=== PATIENT | male | born 1945 | race Caucasian/White ===

== ENCOUNTER 2016-08-02 15:45 | Inpatient (IN) | payer OTHER, MEDICARE ==
[~2016-08-02] VITALS: Ht 172.7 cm; Wt 88.7 kg
[~2016-08-02 15:45] MED LIST: CEPH-460 PO; LIDO5DIS35 TOPICAL; MOBI15TA PO; PERC5TAB12 PO
[2016-08-02 15:47] VITALS: BP 133/75; PULSE 82; RESP 20; TEMP 97.7; O2SAT 100
--- NOTE | 2016-08-02 16:16 | PD ---
Physical Exam Date Seen by Provider: Aug 02, 2016 Time Seen by Provider: 16:14 Narrative 71 year old male presents to the emergency department for evaluation of abnormal lab result. He states he had blood taken from the [facility] and was told he had low platelets of 17. He states he has spontaneous ecchymosis. His primary care physician, Dr. Pope, at the [facility] sent him here. Vital signs reviewed. Patient awaiting bed placement. Data Data Last Documented VS Vital Signs Date Time Temp Pulse Resp B/P Pulse Ox O2 Delivery O2 Flow Rate FiO2 08/02/16 15:47 97.7 82 20 133/75 100 Room Air MDM Supervised Visit with KAYCE: Shara Kennedy Aug 02, 2016 16:16
[2016-08-02 17:23] VITALS: BP 137/74; PULSE 79; RESP 14; O2SAT 100
[2016-08-02 18:06] LABS: AUTOMATED NEUTROPHIL # 4.4 TH/MM3 (1.8-7.7); BASOPHIL # 0.1 TH/MM3 (0-0.2); BASOPHIL % 0.8 % (0.0-2.0); EOSINOPHIL # 0.1 TH/MM3 (0-0.4); EOSINOPHIL % 0.9 % (0.0-4.0); HEMATOCRIT 39.2 % (39.0-51.0); LYMPH % 31.3 % (9.0-44.0); LYMPHOCYTE # 2.2 TH/MM3 (1.0-4.8); MEAN CELL VOLUME 87.3 FL (80.0-100.0); MEAN CORPUSCULAR HEMOGLOBIN 29.1 PG (27.0-34.0); MEAN CORPUSCULAR HGB CONC 33.3 % (32.0-36.0); MONO % 5.9 % (0.0-8.0); NEUT % 61.1 % (16.0-70.0); RED BLOOD COUNT 4.49 MIL/MM3 (4.50-5.90); RED CELL DISTRIBUTION WIDTH 13.5 % (11.6-17.2); WHITE BLOOD COUNT 7.1 TH/MM3 (4.0-11.0)
[2016-08-02 18:08] LABS: HEMO FLAGS AUTO DIFF
[2016-08-02 18:10] LABS: APTT (PATIENT) 22.7 SEC (24.3-30.1); PLATELET COUNT 6 TH/MM3 (150-450)
[2016-08-02] MEDS ORDERED: SODIUM CHLOR 0.9% 250 ML INJ 250 ML IV ONE (18:15)
[2016-08-02 18:16] LABS: BICARBONATE 30.6 MEQ/L (21.0-32.0); POTASSIUM 4.2 MEQ/L (3.5-5.1)
--- NOTE | 2016-08-02 18:21 | PD ---
HPI Chief Complaint: Abnormal Results Time Seen by Provider: 17:19 Travel History International Travel<30 days: No Contact w/Intl Traveler<30days: No Traveled to known affect area: No History of Present Illness HPI 71-year-old male presents with low platelet that he states [facility] but he's not sure of the exact number. He states that he's been bruising easily with areas to his legs. He states he also bleeds around his gums. He notes pain all over but states the main spot he is hurting is near the bruises to his legs. He denies any specific trauma or other concurrent complaints. He states he's never had this problem before. Quality is low. PFSH Past Medical History Diabetes: Yes (metformin this AM) Patient Takes Glucophage: Yes Past Surgical History Other Surgery: Yes (colon surgery, hernia) Social History Alcohol Use: No Tobacco Use: No Substance Use: No Allergies-Medications (Allergen,Severity, Reaction): Coded Allergies: Morphine (Verified Allergy, Intermediate, unknown, 08/02/16) Reported Meds & Prescriptions Reported Meds & Active Scripts Active Lidoderm Patch 12 HR (Lidocaine) 5% Patch 1 Patch TOPICAL DAILY Remove patch after 12 hours Percocet (Oxycodone-Acetaminophen) 5-325 mg Tab 1 Tab PO Q6H PRN Review of Systems Except as stated in HPI: all other systems reviewed are Neg Physical Exam Narrative GENERAL: Well-nourished, well-developed patient. SKIN: Petechiae noted to lower extremities, bruise noted to lower leg and upper arm HEAD: Normocephalic and atraumatic. EYES: No injection or drainage. ENT: No nasal drainage noted. NECK: Supple, trachea midline. CARDIOVASCULAR: Regular rate and rhythm RESPIRATORY: Breath sounds equal bilaterally at apices. No accessory muscle use. GASTROINTESTINAL: Abdomen soft, non-tender, nondistended. EXTREMITIES: No edema. No calf pain NEUROLOGICAL: Awake and alert. Motor and sensory grossly within normal limits. Normal speech. Data Data Last Documented VS Vital Signs Date Time Temp Pulse Resp B/P Pulse Ox O2 Delivery O2 Flow Rate FiO2 08/02/16 17:23 79 14 137/74 100 Room Air 08/02/16 15:47 97.7 Orders Complete Blood Count With Diff (08/02/16 17:19) Basic Metabolic Panel (Bmp) (08/02/16 17:19) Act Partial Throm Time (Ptt) (08/02/16 17:19) Prothrombin Time / Inr (Pt) (08/02/16 17:19) Iv Access Insert/Monitor (08/02/16 17:19) Ecg Monitoring (08/02/16 17:19) Oximetry (08/02/16 17:19) Platelet Pheresis (08/02/16 18:11) Blood Product Administration .UPON TRANSFUSION (08/02/16 18:11) Sodium Chlor 0.9% 250 Ml Inj (Ns 250 Ml (08/02/16 18:15) Type And Screen (08/02/16 18:11) Dexamethasone Inj (Decadron Inj) (08/02/16 18:30) Consult Hematology (08/02/16 ) Admit Order (Ed Use Only) (08/02/16 18:29) Hepatic Functional Panel (08/02/16 17:45) Labs Laboratory Tests Test 08/02/16 08/02/16 17:45 18:26 White Blood Count 7.1 TH/MM3 Red Blood Count 4.49 MIL/MM3 Hemoglobin 13.1 GM/DL Hematocrit 39.2 % Mean Corpuscular Volume 87.3 FL Mean Corpuscular Hemoglobin 29.1 PG Mean Corpuscular Hemoglobin 33.3 % Concent Red Cell Distribution Width 13.5 % Platelet Count 6 TH/MM3 Mean Platelet Volume 10.8 FL Neutrophils (%) (Auto) 61.1 % Lymphocytes (%) (Auto) 31.3 % Monocytes (%) (Auto) 5.9 % Eosinophils (%) (Auto) 0.9 % Basophils (%) (Auto) 0.8 % Neutrophils # (Auto) 4.4 TH/MM3 Lymphocytes # (Auto) 2.2 TH/MM3 Monocytes # (Auto) 0.4 TH/MM3 Eosinophils # (Auto) 0.1 TH/MM3 Basophils # (Auto) 0.1 TH/MM3 CBC Comment AUTO DIFF Prothrombin Time 11.0 SEC Prothromb Time International 1.0 RATIO Ratio Activated Partial 22.7 SEC Thromboplast Time Sodium Level 140 MEQ/L Potassium Level 4.2 MEQ/L Chloride Level 105 MEQ/L Carbon Dioxide Level 30.6 MEQ/L Anion Gap 4 MEQ/L Blood Urea Nitrogen 25 MG/DL Creatinine 1.25 MG/DL Estimat Glomerular Filtration 57 ML/MIN Rate Random Glucose 135 MG/DL Calcium Level 9.2 MG/DL Blood Type A POSITIVE Antibody Screen NEGATIVE Blood Bank Comment MDM Medical Decision Making Medical Screen Exam Complete: Yes Emergency Medical Condition: Yes Medical Record Reviewed: Yes (past history confirmed) Interpretation(s) CBC & BMP Diagram 08/02/16 17:45 Differential Diagnosis ITP, lab error, ttp Narrative Course Will check blood work and reevaluate Platelets came back at 6 will transfuse one pack to start and discuss with hematology patient agrees to admit Physician Communication Physician Communication dr duran states to give dexamethasone 40 mg IV, will follow Dr. molina agrees to admission Diagnosis Primary Impression: Thrombocytopenia Megan Best MD Aug 02, 2016 18:21
[2016-08-02] MEDS ORDERED: DEXAMETHASONE SOD PHOS 4 MG/ML VIAL IV PUSH ONE (18:30)
[2016-08-02] MEDS ORDERED: oxyCODONE/ACETAMINOPHEN 5 MG/325 MG TAB PO PRN (18:45)
[2016-08-02 19:04] LABS: PLATELET ESTIMATE SMEAR RARE (NORMAL); PLATELET MORPHOLOGY NORMAL (NORMAL); SCAN/DIFF AUTO DIFF CONFIRMED
[2016-08-02 19:13] LABS: INDIRECT BILIRUBIN 1.1 MG/DL (0.0-0.8); TOTAL BILIRUBIN ADULT 1.4 MG/DL (0.2-1.0)
--- NOTE | 2016-08-02 19:47 | HHI.HP ---
[facility] Admission Diagnosis thrombocytopenia Diagnoses: (1) Thrombocytopenia Diagnosis: Principal (2) Dehydration Diagnosis: Principal (3) Chronic pain Diagnosis: Principal (4) DM (diabetes mellitus) Diagnosis: Principal Travel History International Travel<30 Days: No Contact w/Intl Traveler <30 Da: No Traveled to Known Affected Are: No History of Present Illness This is a 71-year-old male with a PMH of HTN, DM and Chronic Pain who was referred to the ER from the [facility] secondary to abnormal labs, per report, Platelets 17. Reports sporadic bruising and bleeding gums after brushing teeth. No h/o thrombocytopenia. Denies recent viral illness. On arrival, BP 133/75, HR 82, O2 sat 100% on RA, Afebrile. WBC normal. Hgb 13.1 Platelets 6 , previously 208 on 02/17/16. GFR 57. BUN 25. Total Bili 1.4. Dr. Antunez consulted by ER physician, recommended platelet transfusion and Dexamethasone 40mg IV. Review of Systems Except as stated in HPI: all other systems reviewed are Neg ROS: 14 point review of systems otherwise negative. Past Family Social History Past Medical History PMH: HTN, DM and Chronic Pain Past Surgical History PAST SURGICAL HISTORY: Hernia Repair, Colon Surgery Allergies: Coded Allergies: Morphine (Verified Allergy, Intermediate, unknown, 08/02/16) Family History PAST FAMILY HISTORY: Reviewed. No h/o DM or CAD Social History PAST SOCIAL HISTORY: Negative for alcohol, tobacco or drugs. Physical Exam Vital Signs Vital Signs Date Time Temp Pulse Resp B/P Pulse Ox O2 Delivery O2 Flow Rate FiO2 08/02/16 17:23 79 14 137/74 100 Room Air 08/02/16 15:47 97.7 82 20 133/75 100 Room Air Physical Exam PE: GENERAL: Pleasant elderly white male in no acute distress. HEENT: PERRLA, EOMI. No scleral icterus or conjunctival pallor. No lid lag or facial droop. CARDIOVASCULAR: Regular rate and rhythm. No obvious murmurs to auscultation. No chest tenderness to palpation. RESPIRATORY: No obvious rhonchi or wheezing. Clear to auscultation. Breath sounds equal bilaterally. GASTROINTESTINAL: Abdomen soft, non-tender, nondistended. BS normal. MUSCULOSKELETAL: Extremities without clubbing, cyanosis, or edema. No obvious deformities. =Ecchymosis to upper and lower extremities. NEUROLOGICAL: Awake, alert and oriented x4. No focal neurologic deficits. Moving both upper and lower extremities spontaneously. Laboratory Laboratory Tests Test 08/02/16 08/02/16 17:45 18:26 White Blood Count 7.1 Red Blood Count 4.49 Hemoglobin 13.1 Hematocrit 39.2 Mean Corpuscular Volume 87.3 Mean Corpuscular Hemoglobin 29.1 Mean Corpuscular Hemoglobin 33.3 Concent Red Cell Distribution Width 13.5 Platelet Count 6 Mean Platelet Volume 10.8 Neutrophils (%) (Auto) 61.1 Lymphocytes (%) (Auto) 31.3 Monocytes (%) (Auto) 5.9 Eosinophils (%) (Auto) 0.9 Basophils (%) (Auto) 0.8 Neutrophils # (Auto) 4.4 Lymphocytes # (Auto) 2.2 Monocytes # (Auto) 0.4 Eosinophils # (Auto) 0.1 Basophils # (Auto) 0.1 CBC Comment AUTO DIFF Differential Comment AUTO DIFF CONFIRMED Platelet Estimate RARE Platelet Morphology Comment NORMAL Red Cell Morphology Comment NORMAL Prothrombin Time 11.0 Prothromb Time International 1.0 Ratio Activated Partial 22.7 Thromboplast Time Sodium Level 140 Potassium Level 4.2 Chloride Level 105 Carbon Dioxide Level 30.6 Anion Gap 4 Blood Urea Nitrogen 25 Creatinine 1.25 Estimat Glomerular Filtration 57 Rate Random Glucose 135 Calcium Level 9.2 Total Bilirubin 1.4 Direct Bilirubin 0.3 Indirect Bilirubin 1.1 Aspartate Amino Transf 20 (AST/SGOT) Alanine Aminotransferase 26 (ALT/SGPT) Alkaline Phosphatase 78 Total Protein 7.8 Albumin 3.9 Blood Type A POSITIVE Antibody Screen NEGATIVE Blood Bank Comment Result Diagram: 08/02/16174408/02/161744 Assessment and Plan Problem List: (1) Thrombocytopenia ICD Code: D69.6 Status: Acute (2) Dehydration ICD Code: E86.0 Status: Acute (3) Chronic pain ICD Code: G89.29 Status: Acute (4) DM (diabetes mellitus) ICD Code: E11.9 Status: Acute Assessment and Plan A/P: 1. Thrombocytopenia: Sent to ER from [facility] due to Platelets 17, currently 6. + spontaneous ecchymosis, gum bleeding. INR normal. Hgb stable. Dr. Antunez consulted by ER physician, recommended platelet transfusion and Dexamethasone 40mg IV, will evaluate in am. Repeat labs following transfusion. Hold home diclofenac. 2. Dehydration: GFR 57, BUN 25. IVF for hydration. Check U/a, repeat labs in am. 3. Chronic Pain: Resume home Percocet. 4. DM: Sliding scale w/ Accu-cheks. Hold Metformin in light of decreased GFR. 5. DVT Prophylaxis: Pharmacologic contraindication in light of profound thrombocytopenia. 6. Social work for d/c planning as needed. 7. Case discussed w/ ER physician at length. Physician Certification 2 Midnight Certification Type: Admission for Inpatient Services Order for Inpatient Services The services are ordered in accordance with Medicare regulations or non- Medicare payer requirements, as applicable. In the case of services not specified as inpatient-only, they are appropriately provided as inpatient services in accordance with the 2-midnight benchmark. Estimated LOS (days): 2 days is the estimated time the patient will need to remain in the hospital, assuming treatment plan goals are met and no additional complications. Post-Hospital Plan: Not yet determined Bárbara Nair MD Aug 02, 2016 19:47
[2016-08-02] MEDS ORDERED: BISACODYL 10 MG SUPP RECTAL PRN (20:00)
[2016-08-02] MEDS ORDERED: ONDANSETRON HCL 4 MG/2 ML VIAL IVP PRN (20:00)
[2016-08-02] MEDS ORDERED: ACETAMINOPHEN 325 MG TAB PO PRN (20:00)
[2016-08-02] MEDS ORDERED: SODIUM CHLORIDE 0.9% FLUSH 10 ML FLUSH IV FLUSH PRN (20:00)
[2016-08-02 20:11] VITALS: BP 134/83; PULSE 72; RESP 18; O2SAT 100
[2016-08-02] MEDS: SODIUM CHLORIDE 0.9% FLUSH 10 ML FLUSH IV FLUSH SCH (20:20)
[2016-08-02] MEDS ORDERED: LANTUS2P SQ (20:28)
[2016-08-02] MEDS ORDERED: VENL50TA PO (20:28)
[2016-08-02] MEDS ORDERED: PRAZ1CAP PO (20:28)
[2016-08-02] MEDS ORDERED: TRAZ50TA12 PO (20:28)
[2016-08-02] MEDS ORDERED: METF1000 PO (20:28)
[2016-08-02] MEDS ORDERED: CETI5TAB2 PO (20:28)
[2016-08-02] MEDS ORDERED: DICL1GEL TOPICAL (20:29)
[2016-08-02] MEDS: SODIUM CHLOR 0.9% 1000 ML INJ 1,000 ML IV SCH (20:34)
[2016-08-02 21:15] VITALS: BP 144/81; PULSE 76; RESP 18; TEMP 97.6; O2SAT 99
[2016-08-02 22:04] VITALS: BP 152/81; PULSE 70; RESP 18; TEMP 97.2; O2SAT 98
[2016-08-02] MEDS: oxyCODONE/ACETAMINOPHEN 10 MG/325 MG TAB PO PRN (22:11)
[2016-08-02] MEDS ORDERED: GLUCAGON 1 MG/ML VIAL OTHER PRN (22:15)
[2016-08-02 22:25] VITALS: BP 147/79; PULSE 72; RESP 18; TEMP 97.6; O2SAT 99
[2016-08-03] VITALS: BP 151/85; PULSE 82; RESP 18; TEMP 97.1; O2SAT 98
[2016-08-03] MEDS: oxyCODONE/ACETAMINOPHEN 10 MG/325 MG TAB PO PRN ×4 (04:20→21:30)
[2016-08-03 05:43] VITALS: BP 155/84; PULSE 79; RESP 18; O2SAT 97
[2016-08-03] MEDS: INSULIN ASPART SUPPLEMENTAL SCALE SQ SCH ×4 (05:50→21:29)
[2016-08-03] MEDS: SODIUM CHLOR 0.9% 1000 ML INJ 1,000 ML IV SCH ×2 (05:52→18:02)
[2016-08-03 07:57] LABS: AUTOMATED NEUTROPHIL # 4.6 TH/MM3 (1.8-7.7); BASOPHIL % 0.1 % (0.0-2.0); LYMPH % 16.4 % (9.0-44.0); LYMPHOCYTE # 0.9 TH/MM3 (1.0-4.8); MEAN CELL VOLUME 86.1 FL (80.0-100.0); MEAN CORPUSCULAR HGB CONC 33.6 % (32.0-36.0); NEUT % 82.5 % (16.0-70.0); PLATELET COUNT 32 TH/MM3 (150-450); RED BLOOD COUNT 4.07 MIL/MM3 (4.50-5.90); RED CELL DISTRIBUTION WIDTH 13.3 % (11.6-17.2); WHITE BLOOD COUNT 5.6 TH/MM3 (4.0-11.0)
[2016-08-03 08:00] VITALS: BP 146/74; PULSE 75; RESP 18; TEMP 97.8; O2SAT 98
[2016-08-03 08:06] LABS: HEMO FLAGS AUTO DIFF
[2016-08-03 08:29] LABS: ALKALINE PHOSPHATASE 74 U/L (45-117); ALT (GPT) 25 U/L (12-78); ANION GAP 9 MEQ/L (5-15); AST (GOT) 13 U/L (15-37); BICARBONATE 25.1 MEQ/L (21.0-32.0); BLOOD UREA NITROGEN 22 MG/DL (7-18); CHLORIDE 102 MEQ/L (98-107); GLOMERULAR FILTRATION RATE 70 ML/MIN (>89); SODIUM (NA) 136 MEQ/L (136-145); TOTAL BILIRUBIN ADULT 1.2 MG/DL (0.2-1.0)
[2016-08-03] MEDS: LIDOCAINE HCL 5% PATCH T-DERMAL SCH (08:40)
[2016-08-03] MEDS: SODIUM CHLORIDE 0.9% FLUSH 10 ML FLUSH IV FLUSH SCH ×2 (08:52→21:00)
[2016-08-03 09:03] LABS: PLATELET ESTIMATE SMEAR LOW (NORMAL); PLATELET MORPHOLOGY ENLARGED (NORMAL); SCAN/DIFF AUTO DIFF CONFIRMED
[2016-08-03 12:00] VITALS: BP 116/58; PULSE 86; RESP 16; TEMP 98.4; O2SAT 96
[2016-08-03] MEDS ORDERED: DEXAMETHASONE SOD PHOS 20 MG/5 ML VIAL IV PUSH ONE (12:45)
--- NOTE | 2016-08-03 13:19 | MB ---
cc: MARIA HEBERT DATE OF CONSULTATION: 08/03/2016 REASON FOR CONSULTATION: Patient with severe thrombocytopenia. CHIEF COMPLAINT: Easy bruising. Bleeding gums. HISTORY OF PRESENT ILLNESS: This is a 71-year-old male with a past medical history of hypertension, diabetes and chronic pain who has a primary care physician at the [facility]. He was sent to the emergency department after he was found to have a low platelet count on routine labs. His platelet count was reported to be 17. In the emergency department, the patient was found to have a platelet count of 6. His WBC was 7.1 and hemoglobin was 13.1. The patient was admitted to the hospital due to severe thrombocytopenia. I spoke with the emergency department physician. I recommended dexamethasone 40 mg IV x1. The patient was given platelet transfusion prior to my conversation with the ED physician. He does not have any findings of hemolysis on his lab workup. He has not had any blood disorders in the past. He has not had any recent infections. He denies any nose bleeds or any hematuria or bright red blood per rectum or melena. REVIEW OF SYSTEMS: A comprehensive 14-point review of systems was completed which is negative except as described in the history of present illness. PAST MEDICAL HISTORY: 1. Hypertension. 2. Hyperlipidemia. 3. Diabetes. 4. Chronic pain. PAST SURGICAL HISTORY: 1. Hernia repair. 2. Colon surgery. MEDICATIONS: Home medications include: 1. Minipress 1 milligram p.o. at bedtime. 2. Trazodone 50 milligrams one tablet p.o. at bedtime. 3. Effexor 50 milligrams one tablet p.o. at bedtime. 4. Sliding scale insulin. 5. Percocet 10/225 p.o. q. 4 hours PRN. 6. Zofran 5 milligrams IV q. 6 hours PRN. 7. Dulcolax 10 milligrams PRN. ALLERGIES: HE IS ALLERGIC TO MORPHINE. PHYSICAL EXAMINATION: VITAL SIGNS: Blood pressure is 146/74, pulse is in the 70s, temperature is 97.8, respiratory rate is 14. 02 saturations are 98% on room air. GENERAL: Well-developed, well-nourished elderly male in no apparent distress. HEAD, EYES, EARS, NOSE, THROAT: Pupils are equal, round and reactive to light. Extraocular muscles intact. No oral thrush. No oral lesions. NECK: The neck is supple. No jugular venous distention. No bruits. No lymphadenopathy. CHEST: Clear to auscultation bilaterally. CARDIAC: S1-S2. Regular rate and rhythm. ABDOMEN: The abdomen is soft, nontender and nondistended. Bowel sounds are present. EXTREMITIES: Without any edema, erythema or cyanosis. SKIN: Without any petechiae, lesions or bruises. NEUROLOGIC: No focal deficit. PSYCHIATRIC: Mood and affect is appropriate. LYMPH NODE EXAM: Unremarkable. LABORATORY DATA: WBC 7.1, hemoglobin 13.1, platelet count today is in the 30s and on presentation it was 6. Serum chemistries show sodium of 136, potassium 4.0, chloride 102, CO2 25.1, anion gap is 9, BUN 22, creatinine is 1.05, GFR is 70, total bilirubin is 1.2, direct bilirubin is 1.3, indirect bilirubin is 1.1, AST 20, ALT is 26, alkaline phosphatase is 78. Troponins are negative. Total protein is 7.8, albumin is 3.9. IMAGING STUDIES: None. HISTORY OF PRESENT ILLNESS: Mr. Holcomb is a 71-year-old male with a past medical history of hypertension, diabetes, chronic pain who presents to the emergency department with easy bruising and bleeding gums. He had a CBC completed at the [facility] and was found to have a low platelet count. 1. Isolated severe thrombocytopenia. This appears to be ITP. He does not have any associated cytopenias. He has no prior history of ITP. I would not recommend any further transfusions in this patient. Will give him a trial of IV dexamethasone 40 milligrams x3 days. We will check LDH and haptoglobin. His total bilirubin is slightly elevated with mildly elevated indirect bilirubin. I do not believe that this is TTP or DIC. We will check a DIC panel. He may need a bone marrow biopsy. 2. Mild hyperbilirubinemia with both direct and indirect bilirubin elevation. Check bilirubin components again tomorrow. Will obtain a direct Tegan test. Consider an abdominal ultrasound. Thank you for allowing me to participate in the care of this patient. I will continue to follow this patient along. MD CHARMAINE Chance/KACY /12:31 PM /1:00 PM
--- NOTE | 2016-08-03 13:43 | HHI.PR ---
Subjective Remarks no complains denies any hemoptysis, melena, Objective Vitals Vital Signs Date Time Temp Pulse Resp B/P Pulse Ox O2 Delivery O2 Flow Rate FiO2 08/03/16 12:00 98.4 86 16 116/58 96 08/03/16 08:00 97.8 75 18 146/74 98 08/03/16 05:43 79 18 155/84 97 08/03/16 00:00 97.1 82 18 151/85 98 08/02/16 22:25 97.6 72 18 147/79 99 08/02/16 22:04 97.2 70 18 152/81 98 08/02/16 21:15 97.6 76 18 144/81 99 08/02/16 20:11 72 18 134/83 100 Room Air 08/02/16 17:23 79 14 137/74 100 Room Air 08/02/16 15:47 97.7 82 20 133/75 100 Room Air I/O 08/02/16 08/02/16 08/02/16 08/03/16 08/03/16 08/03/16 07:00 15:00 23:00 07:00 15:00 23:00 Intake Total 240 ml 1280 ml 240 ml Balance 240 ml 1280 ml 240 ml Intake Oral 240 ml 480 ml 240 ml IV Total 800 ml # Voids 0 1 # Bowel Movements 0 0 Result Diagram: 08/03/16 0745 08/03/16 0745 A/P Problem List: (1) Thrombocytopenia ICD Code: D69.6 Status: Acute (2) Dehydration ICD Code: E86.0 Status: Acute (3) Chronic pain ICD Code: G89.29 Status: Acute (4) DM (diabetes mellitus) ICD Code: E11.9 Status: Acute Assessment and Plan 71 years old male 1. Severe Thrombocytopenia: Platelets 17, currently 6- up to 32. . + spontaneous ecchymosis, gum bleeding. INR normal. Hgb stable. ff by Dr. Antunez . No NSAIds. work in progress 2. SHMUEL-- improved: improved.GFR 57, BUN 25. IVF for hydration. Check U/a,NO NSAIDs 3. Chronic Pain: home Percocet. 4. DM: Sliding scale w/ Accu-cheks. Blood sugars elevated with IV steroids. Restart long acting insulin. Hold Metformin in light of decreased GFR. start levemr half home dose. continue sliding scale 5. DVT Prophylaxis: Pharmacologic contraindication in light of profound thrombocytopenia.. up and ambularting 6. Social work for d/c planning as needed. [facility] planning tomorro wif cleared with Dr. Harmony Serrano,Shawna Hong MD Aug 03, 2016 13:43
--- NOTE | 2016-08-03 13:58 | EKG ---
Date Performed: 08/03/2016 Time Performed: 11:39:55 PTAGE: 71 years EKG: Sinus rhythm WITH FIRST DEGREE AV BLOCK MODERATE INTRAVENTRICULAR CONDUCTION DELAY ST DEVIATION AND MODERATE T-WA VE ABNORMALITY, CONSIDER LATERAL ISCHEMIA Since previous tracing, no significant change noted ABNORMA L ECG PREVIOUS TRACING : 08/03/2016 06.05 DOCTOR: Fly Mensah Interpretating Date/Time 08/03/2016 13:57:44
--- NOTE | 2016-08-03 13:58 | EKG ---
Date Performed: 08/03/2016 Time Performed: 06:05:39 PTAGE: 71 years EKG: Sinus rhythm WITH FIRST DEGREE AV BLOCK MODERATE INTRAVENTRICULAR CONDUCTION DELAY ST DEVIATION AND MODERATE T-WA VE ABNORMALITY, CONSIDER LATERAL ISCHEMIA ABNORMAL ECG NO PREVIOUS TRACING DOCTOR: Fly Mensah Interpretating Date/Time 08/03/2016 13:57:33
--- NOTE | 2016-08-03 14:00 | RADRPT ---
EXAM DATE/TIME: 08/03/2016 12:06 [facility] COMPARISON: No previous studies available for comparison. INDICATIONS : Bilateral leg edema. MEDICAL HISTORY : Sleep apnea. Diabetes. PTSD. Anxiety. SURGICAL HISTORY : Colon surgery. Hernia repair. ENCOUNTER: Initial ACUITY: 4 - 6 months PAIN SCORE: 7/10 LOCATION: Bilateral leg. TECHNIQUE: Venous ultrasound of the left and right leg was performed from the inguinal ligament to the proximal calf. Real-time, color Doppler and spectral tracing, compression and augmentation techniques were us ed. FINDINGS: RIGHT LEG: There is normal compressibility of the deep venous system from the inguinal region to the proximal ca lf. No echogenic clot is seen in the lumen of the common femoral, femoral, popliteal, and posterior tibial veins. There is a normal response of the venous system to proximal and distal augmentation an d respiration. LEFT LEG: There is normal compressibility of the deep venous system from the inguinal region to the proximal ca lf. No echogenic clot is seen in the lumen of the common femoral, femoral, popliteal, and posterior tibial veins. There is a normal response of the venous system to proximal and distal augmentation an d respiration. CONCLUSION: Normal examination. Esequiel Robledo MD on August 03, 2016 at 13:58 Board Certified Radiologist. This report was verified electronically.
[2016-08-03 16:00] VITALS: BP 126/66; PULSE 60; RESP 18; TEMP 97.4; O2SAT 97
[2016-08-03 19:16] LABS: LDH SERUM 166 U/L (87-241)
[2016-08-03 20:39] VITALS: BP 132/62; PULSE 74; RESP 18; TEMP 97.5; O2SAT 94
[2016-08-03] MEDS ORDERED: INSULIN DETEMIR 100 UNITS/ML VIAL SQ SCH (21:00)
[2016-08-03] MEDS: traZODone HCL 50 MG TAB PO SCH (21:27)
[2016-08-03] MEDS: PRAZOSIN HCL 1 MG CAP PO SCH (21:27)
[2016-08-03] MEDS: VENLAFAXINE HCL 25 MG TAB PO SCH (21:28)
[2016-08-04 00:45] VITALS: BP 117/66; PULSE 72; RESP 20; TEMP 97; O2SAT 96
[2016-08-04] MEDS: oxyCODONE/ACETAMINOPHEN 10 MG/325 MG TAB PO PRN ×6 (02:20→21:25)
[2016-08-04] MEDS: SODIUM CHLOR 0.9% 1000 ML INJ 1,000 ML IV SCH ×2 (02:25→13:02)
[2016-08-04 04:00] VITALS: BP 111/58; PULSE 61; RESP 18; TEMP 96.2; O2SAT 97
[2016-08-04] MEDS: INSULIN ASPART SUPPLEMENTAL SCALE SQ SCH ×4 (05:58→21:23)
[2016-08-04 08:00] VITALS: BP 151/79; PULSE 54; RESP 20; TEMP 96.2; O2SAT 99
[2016-08-04] MEDS: LIDOCAINE HCL 5% PATCH T-DERMAL SCH (08:08)
[2016-08-04] MEDS: SODIUM CHLORIDE 0.9% FLUSH 10 ML FLUSH IV FLUSH SCH ×2 (08:09→21:00)
--- NOTE | 2016-08-04 10:07 | PD.ONC.PN ---
Subjective Subjective Remarks Afebrile overnight. 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 Denies bleeding. Objective Data Date Time Temp Pulse Resp B/P Pulse Ox O2 Delivery O2 Flow Rate FiO2 08/04/16 08:00 96.2 54 20 151/79 99 08/04/16 04:00 96.2 61 18 111/58 97 08/04/16 00:45 97.0 72 20 117/66 96 08/03/16 20:39 97.5 74 18 132/62 94 08/03/16 16:00 97.4 60 18 126/66 97 08/03/16 12:00 98.4 86 16 116/58 96 Result Diagram: 08/03/16 0745 08/03/16 0745 Laboratory Results Laboratory Tests Test 08/03/16 08/03/16 11:55 18:33 Troponin I LESS THAN 0.02 LESS THAN 0.02 NG/ML NG/ML Haptoglobin 198 MG/DL Lactate Dehydrogenase 166 U/L Administered Medications Medications (Trade) Dose Ordered Sig/Ubaldo Route PRN Reason Start Time Stop Time Status Last Admin Dose Admin Lidocaine HCl (Lidoderm 5% Patch.12 Hr) 1 patch DAILY T-DERMAL 08/03/16 09:00 08/04/16 08:08 Oxycodone/ Acetaminophen 1 tab 1 tab Q4H PRN PO PAIN 6-10 08/02/16 20:00 08/04/16 05:56 Sodium Chloride (NS 1000 ml Inj) 1,000 ml @ 100 mls/hr Q10H IV 08/02/16 20:00 08/04/16 02:25 Sodium Chloride (NS Flush) 2 ml BID IV FLUSH 08/02/16 21:00 08/04/16 08:09 Prazosin HCl (Minipress) 1 mg HS PO 08/03/16 21:00 08/03/16 21:27 Trazodone HCl (Desyrel) 50 mg HS PO 08/03/16 21:00 08/03/16 21:27 Venlafaxine HCl (Effexor) 50 mg HS PO 08/03/16 21:00 08/03/16 21:28 Insulin Detemir (Levemir Inj) 50 units HS SQ 08/03/16 21:00 08/03/16 21:29 Objective Remarks GENERAL: Elderly male, sitting up in bed in nad SKIN: Warm and dry. HEAD: Normocephalic. EYES: No injection or drainage. NECK: Supple, trachea midline. CARDIOVASCULAR: Regular rate and rhythm RESPIRATORY: Breath sounds equal bilaterally. No accessory muscle use. GASTROINTESTINAL: Abdomen soft, non-tender, nondistended. EXTREMITIES: No cyanosis NEUROLOGICAL: No obvious focal deficit. Awake, alert, and oriented x3. 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 --no associated cytopenias. no prior history of ITP. --trial IV dexamethasone 40 milligrams x3 days (started on 08/02, today would be the third dose) --LDH and haptoglobin WNL --do not believe that this is TTP or DIC. --coags WNL --may need a bone marrow biopsy. (2) Elevated bilirubin Status: Acute Plan: --Mild hyperbilirubinemia with both direct and indirect bilirubin elevation. --direct Tegan test pending --may need abdominal ultrasound Assessment 71y/o male with severe thrombocytopenia. history of hypertension, diabetes and chronic pain HPI: was sent to ED after he was found to have a low platelet count on routine labs. Plan 1. no platelet transfusion unless bleeding--platelets likely to be consumed with ITP 2. continue Decadron 40mg IV daily 3. possibly IVIG tomorrow, may need bone marrow biopsy as well. Attending Statement The exam, history, and the medical decision-making described in the above note were completed with the assistance of the mid-level provider. I reviewed and agree with the findings presented. I attest that I had a [id number] encounter with the patient on the same day, and personally performed and documented my assessment and findings in the medical record. Pulse dose steroids for newly diagnosed ITP. no other cytopenias Platelets dropped today. Will treat for one additional day with steroids. If now response over the next 48 hours. Will treat with IVIG Bone marrow biopsy to assess for any other etiology abdo u/s to assess spleen check Hepatitis and HIV panel. LDH and Haptoglobin normal--no evidence of MAHA. Fibrinogen also normal. d/w patient. d/w Chanel Tinoco Aug 04, 2016 10:06 Lamberto Antunez MD Aug 04, 2016 23:01
[2016-08-04 10:50] LABS: AUTOMATED NEUTROPHIL # 7.2 TH/MM3 (1.8-7.7); HEMATOCRIT 32.7 % (39.0-51.0); LYMPH % 14.4 % (9.0-44.0); LYMPHOCYTE # 1.3 TH/MM3 (1.0-4.8); MEAN CELL VOLUME 87.9 FL (80.0-100.0); MEAN CORPUSCULAR HEMOGLOBIN 29.5 PG (27.0-34.0); MEAN CORPUSCULAR HGB CONC 33.6 % (32.0-36.0); MONO % 4.8 % (0.0-8.0); NEUT % 80.8 % (16.0-70.0); RED BLOOD COUNT 3.72 MIL/MM3 (4.50-5.90); RED CELL DISTRIBUTION WIDTH 13.3 % (11.6-17.2); WHITE BLOOD COUNT 8.9 TH/MM3 (4.0-11.0)
[2016-08-04 10:56] LABS: HEMO FLAGS AUTO DIFF
[2016-08-04 10:58] LABS: PLATELET COUNT 5 TH/MM3 (150-450)
[2016-08-04 11:09] LABS: APTT (PATIENT) 22.3 SEC (24.3-30.1); PROTHROMBIN TIME - PATIENT 11.4 SEC (9.8-11.6)
[2016-08-04 11:18] LABS: BICARBONATE 25.8 MEQ/L (21.0-32.0); INDIRECT BILIRUBIN 0.6 MG/DL (0.0-0.8); TOTAL BILIRUBIN ADULT 0.8 MG/DL (0.2-1.0)
[2016-08-04 11:34] LABS: PLATELET ESTIMATE SMEAR RARE (NORMAL); PLATELET MORPHOLOGY NORMAL (NORMAL); SCAN/DIFF AUTO DIFF CONFIRMED
[2016-08-04] MEDS ORDERED: DEXAMETHASONE SOD PHOS 20 MG/5 ML VIAL IV PUSH ONE (11:45)
[2016-08-04] MEDS: PANTOPRAZOLE SODIUM 40 MG VIAL IV PUSH SCH (13:01)
[2016-08-04 13:30] VITALS: BP 133/80; PULSE 53; RESP 20; TEMP 97.2; O2SAT 95
--- NOTE | 2016-08-04 13:42 | EKG ---
Date Performed: 08/03/2016 Time Performed: 17:44:19 PTAGE: 71 years EKG: Sinus rhythm WITH FIRST DEGREE AV BLOCK MODERATE INTRAVENTRICULAR CONDUCTION DELAY NONSPECIFIC ST & T-WAVE ABNORM ALITY Since previous tracing, no significant change noted ABNORMAL ECG PREVIOUS TRACING : 08/03/2016 11.39 DOCTOR: Fly Mensah Interpretating Date/Time 08/04/2016 13:41:07
--- NOTE | 2016-08-04 16:09 | HHI.PR ---
Subjective Remarks no complains- no melena or hematochezia retrospectively- bruises easily per patient and takes long time to heal no melena or hematochezia Objective Vitals Vital Signs Date Time Temp Pulse Resp B/P Pulse Ox O2 Delivery O2 Flow Rate FiO2 08/04/16 13:08 17 08/04/16 08:00 96.2 54 20 151/79 99 08/04/16 04:00 96.2 61 18 111/58 97 08/04/16 00:45 97.0 72 20 117/66 96 08/03/16 20:39 97.5 74 18 132/62 94 I/O 08/03/16 08/03/16 08/03/16 08/04/16 08/04/16 08/04/16 07:00 15:00 23:00 07:00 15:00 23:00 Intake Total 1280 ml 1800 ml Balance 1280 ml 1800 ml Intake Oral 480 ml 1800 ml IV Total 800 ml # Voids 1 4 2 # Bowel Movements 0 1 2 Result Diagram: 08/04/16 1032 08/04/16 1032 Imaging Last Impressions Lower Extremity Ultrasound 08/03/16 0000 Signed Impressions: Service Date/Time: Wednesday, August 03, 2016 12:06 - CONCLUSION: Normal examination. KBrianne Robledo MD Objective Remarks awake and alert skin with old bruises lungs clear regular rhythm abdomens oft, good bowel sounds extremities no edema A/P Problem List: (1) Thrombocytopenia ICD Code: D69.6 Status: Acute (2) Dehydration ICD Code: E86.0 Status: Acute (3) Chronic pain ICD Code: G89.29 Status: Acute (4) DM (diabetes mellitus) ICD Code: E11.9 Status: Acute Assessment and Plan 71 years old male 1. Severe Thrombocytopenia: platelet drop down to 5. +spontaneous ecchymosis, gum bleeding. INR normal. Hgb stable. ff by Dr. Antunez . S/P Dexamethasone crourse-no improvement. No NSAIds. for IVIG 2. SHMUEL-- improved: improved.GFR 57, BUN 25. IVF for hydration. NO NSAIDs 3. Chronic Pain: home Percocet. 4. DM: Sliding scale w/ Accu-cheks. Blood sugars elevated with IV steroids. Restart long acting insulin. Hold Metformin in light of decreased GFR. Increase Levemir to 50 units bid. continue sliding scale. continue adjusting 5. DVT Prophylaxis: Pharmacologic contraindication in light of profound thrombocytopenia.. up and ambularting 6. Social work for d/c planning as needed. [facility] will need to [facility] for possible IVIG- platelet dangerously low Shawna Serrano MD Aug 04, 2016 16:09
[2016-08-04 17:00] VITALS: BP 133/84; PULSE 56; RESP 20; TEMP 97.5; O2SAT 96
[2016-08-04 20:00] VITALS: BP 104/56; PULSE 65; RESP 16; TEMP 96.2; O2SAT 97
[2016-08-04] MEDS: traZODone HCL 50 MG TAB PO SCH (21:23)
[2016-08-04] MEDS: INSULIN DETEMIR 100 UNITS/ML VIAL SQ SCH (21:23)
[2016-08-04] MEDS: PRAZOSIN HCL 1 MG CAP PO SCH (21:23)
[2016-08-04] MEDS: VENLAFAXINE HCL 25 MG TAB PO SCH (21:24)
[2016-08-05] VITALS (13 sets, daily range): BP systolic 116–147; BP diastolic 61–77; PULSE 52–66; RESP 16–18; TEMP 95.9–98.4; O2SAT 94–100
[2016-08-05] MEDS: oxyCODONE/ACETAMINOPHEN 10 MG/325 MG TAB PO PRN ×3 (03:42→18:42)
[2016-08-05] MEDS: SODIUM CHLOR 0.9% 1000 ML INJ 1,000 ML IV SCH ×3 (03:43→21:44)
[2016-08-05] MEDS: INSULIN ASPART SUPPLEMENTAL SCALE SQ SCH ×4 (05:32→21:00)
[2016-08-05 06:40] LABS: AUTOMATED NEUTROPHIL # 5.4 TH/MM3 (1.8-7.7); HEMATOCRIT 30.2 % (39.0-51.0); LYMPH % 18.7 % (9.0-44.0); LYMPHOCYTE # 1.3 TH/MM3 (1.0-4.8); MEAN CELL VOLUME 86.1 FL (80.0-100.0); MEAN CORPUSCULAR HEMOGLOBIN 30.2 PG (27.0-34.0); MEAN CORPUSCULAR HGB CONC 35.1 % (32.0-36.0); MONO % 4.6 % (0.0-8.0); NEUT % 76.7 % (16.0-70.0); RED BLOOD COUNT 3.51 MIL/MM3 (4.50-5.90); RED CELL DISTRIBUTION WIDTH 13.5 % (11.6-17.2); WHITE BLOOD COUNT 7.1 TH/MM3 (4.0-11.0)
[2016-08-05 06:47] LABS: HEMO FLAGS AUTO DIFF
[2016-08-05 06:48] LABS: PLATELET COUNT 2 TH/MM3 (150-450)
[2016-08-05] MEDS ORDERED: DEXAMETHASONE SOD PHOS 20 MG/5 ML VIAL IV PUSH ONE (07:00)
[2016-08-05 07:53] LABS: PLATELET ESTIMATE SMEAR RARE (NORMAL); PLATELET MORPHOLOGY NORMAL (NORMAL); SCAN/DIFF AUTO DIFF CONFIRMED
--- NOTE | 2016-08-05 10:34 | RADRPT ---
EXAM DATE/TIME: 08/05/2016 08:35 [place] COMPARISON: No previous studies available for comparison. INDICATIONS : Thrombocytopenia. MEDICAL HISTORY : Sleep apnea. Diabetes. PTSD. Anxiety. SURGICAL HISTORY : Colon surgery. Hernia repair. ENCOUNTER: Initial ACUITY: 1 day PAIN SCORE: 0/10 LOCATION: Abdomen. MEASUREMENTS: LIVER: 18.3 cm length COMMON DUCT: 5 mm RIGHT KIDNEY: 11.2 x 4.9 x 5.4 cm LEFT KIDNEY: 11.5 x 5.9 x 5.4 cm SPLEEN: 12.0 cm length AORTA: 2.8cm maximal FINDINGS: LIVER: Slightly increased echotexture without focal lesion or ductal dilatation. COMMON DUCT: No intraluminal mass or stone visualized. GALLBLADDER: Multiple mobile stones. No mural thickening or pericholecystic fluid PANCREAS: The visualized portions are within normal limits. Visualization is limited due to overlying bowel ga s RIGHT KIDNEY: No hydronephrosis, stone or mass. LEFT KIDNEY: No hydronephrosis, stone or mass. SPLEEN: No focal lesion. AORTA: Limited visualization due to overlying bowel gas. No aneurysmal disease identified. IVC: Within normal limits. CONCLUSION: 1. Cholelithiasis without mural thickening or pericholecystic fluid. No intrahepatic biliary ductal d ilatation. 2. Spleen is upper limits of normal in size. 3. Slight increased hepatic echotexture suggesting some degree of fatty infiltration. 4. Limited visualization of portions of the pancreas and aorta due to overlying bowel gas. Fredrick Cabello MD on August 05, 2016 at 10:13 Board Certified Radiologist. This report was verified electronically.
[2016-08-05] MEDS: SODIUM CHLORIDE 0.9% FLUSH 10 ML FLUSH IV FLUSH SCH ×2 (11:00→21:00)
[2016-08-05] MEDS: LIDOCAINE HCL 5% PATCH T-DERMAL SCH (11:00)
[2016-08-05] MEDS: INSULIN DETEMIR 100 UNITS/ML VIAL SQ SCH ×2 (11:00→21:43)
[2016-08-05] MEDS ORDERED: DIPHENHYDRAMINE HCL 50 MG/ML VIAL Reaction Med IV PUSH PRN (11:45)
[2016-08-05] MEDS ORDERED: EPINEPHRINE HCL (1:1000) 1 MG/ML AMP Reaction Med OTHER PRN (11:45)
[2016-08-05] MEDS: NS 500 ML Pre-hydration IV SCH (12:40)
[2016-08-05] MEDS: PANTOPRAZOLE SODIUM 40 MG VIAL IV PUSH SCH (12:41)
[2016-08-05] MEDS: ACETAMINOPHEN 325 MG TAB Pre-med PO SCH (12:44)
[2016-08-05] MEDS: DIPHENHYDRAMINE HCL 25 MG CAP Pre-med PO SCH (12:47)
--- NOTE | 2016-08-05 12:53 | HHI.PR ---
Subjective Remarks alert, no headaches, nausea or vomiting no melena, no signs of active bleeding Objective Vitals Vital Signs Date Time Temp Pulse Resp B/P Pulse Ox O2 Delivery O2 Flow Rate FiO2 08/05/16 08:00 96.5 55 16 140/77 97 08/05/16 04:00 96.3 66 16 133/77 95 08/05/16 00:00 95.9 66 16 120/69 95 08/04/16 20:00 96.2 65 16 104/56 97 08/04/16 17:00 97.5 56 20 133/84 96 08/04/16 13:30 97.2 53 20 133/80 95 08/04/16 13:08 17 I/O 08/04/16 08/04/16 08/04/16 08/05/16 08/05/16 08/05/16 07:00 15:00 23:00 07:00 15:00 23:00 Intake Total 720 ml 480 ml 720 ml Output Total 300 ml 400 ml Balance 720 ml 180 ml 320 ml Intake Oral 720 ml 480 ml 720 ml Output Urine Total 300 ml 400 ml # Voids 2 # Bowel Movements 0 Result Diagram: 08/05/16 0616 08/04/16 1032 Imaging Last Impressions Abdomen Ultrasound 08/05/16 0000 Signed Impressions: Service Date/Time: Friday, August 05, 2016 08:35 - CONCLUSION: 1. Cholelithiasis without mural thickening or pericholecystic fluid. No intrahepatic biliary ductal dilatation. 2. Spleen is upper limits of normal in size. 3. Slight increased hepatic echotexture suggesting some degree of fatty infiltration. 4. Limited visualization of portions of the pancreas and aorta due to overlying bowel gas. Fredrick Cabello MD Lower Extremity Ultrasound 08/03/16 0000 Signed Impressions: Service Date/Time: Wednesday, August 03, 2016 12:06 - CONCLUSION: Normal examination. Esequiel Robledo MD Objective Remarks awake and alert skin with old bruises, ecchymoses- spontaneousl lungs clear regular rhythm abdomens soft, good bowel sounds extremities no edema A/P Problem List: (1) Thrombocytopenia ICD Code: D69.6 Status: Acute (2) Dehydration ICD Code: E86.0 Status: Acute (3) Chronic pain ICD Code: G89.29 Status: Acute (4) DM (diabetes mellitus) ICD Code: E11.9 Status: Acute Assessment and Plan 71 years old male 1. Severe Thrombocytopenia: no response with steroids. . Hgb stable. ff by Dr. Antunez . IVIG initiated today 2. SHMUEL-- improved: improved.GFR 57, BUN 25. IVF for hydration. NO NSAIDs 3. Chronic Pain: home Percocet. 4. DM: Sliding scale w/ Accu-cheks. Blood sugars elevated with IV steroids. Restart long acting insulin. Hold Metformin in light of decreased GFR. Levemir to 50 units bid. continue sliding scale. continue adjusting - last dose of Dexamethasone today states at home on Lantus 100 units HS and humulin R - unrecalled dose. check A1C 5. DVT Prophylaxis: Pharmacologic contraindication in light of profound thrombocytopenia.. up and ambulating 6. Social work for d/c planning as needed. Shawna Serrano MD Aug 05, 2016 12:53
--- NOTE | 2016-08-05 12:58 | PD.ONC.PN ---
Subjective Subjective Remarks Afebrile overnight. Patient resting comfortably. Complaining of some pain in his right scapula, present on and off since he fell four weeks ago. Denies bleeding or headache. Objective Data Date Time Temp Pulse Resp B/P Pulse Ox O2 Delivery O2 Flow Rate FiO2 08/05/16 08:00 96.5 55 16 140/77 97 08/05/16 04:00 96.3 66 16 133/77 95 08/05/16 00:00 95.9 66 16 120/69 95 08/04/16 20:00 96.2 65 16 104/56 97 08/04/16 17:00 97.5 56 20 133/84 96 08/04/16 13:30 97.2 53 20 133/80 95 08/04/16 13:08 17 08/05/16 08/05/16 08/05/16 07:00 15:00 23:00 Intake Total 720 ml Output Total 400 ml Balance 320 ml Result Diagram: 08/05/16 0616 08/04/16 1032 Laboratory Results Laboratory Tests Test 08/05/16 06:16 White Blood Count 7.1 TH/MM3 Red Blood Count 3.51 MIL/MM3 Hemoglobin 10.6 GM/DL Hematocrit 30.2 % Mean Corpuscular Volume 86.1 FL Mean Corpuscular Hemoglobin 30.2 PG Mean Corpuscular Hemoglobin 35.1 % Concent Red Cell Distribution Width 13.5 % Platelet Count 2 TH/MM3 Mean Platelet Volume 10.7 FL Neutrophils (%) (Auto) 76.7 % Lymphocytes (%) (Auto) 18.7 % Monocytes (%) (Auto) 4.6 % Eosinophils (%) (Auto) 0.0 % Basophils (%) (Auto) 0.0 % Neutrophils # (Auto) 5.4 TH/MM3 Lymphocytes # (Auto) 1.3 TH/MM3 Monocytes # (Auto) 0.3 TH/MM3 Eosinophils # (Auto) 0.0 TH/MM3 Basophils # (Auto) 0.0 TH/MM3 CBC Comment AUTO DIFF Differential Comment AUTO DIFF CONFIRMED Platelet Estimate RARE Platelet Morphology Comment NORMAL Red Cell Morphology Comment NORMAL Blood Smear Pathologist Review Imaging Studies Last 24 hours Impressions Abdomen Ultrasound 08/05/16 0000 Signed Impressions: Service Date/Time: Friday, August 05, 2016 08:35 - CONCLUSION: 1. Cholelithiasis without mural thickening or pericholecystic fluid. No intrahepatic biliary ductal dilatation. 2. Spleen is upper limits of normal in size. 3. Slight increased hepatic echotexture suggesting some degree of fatty infiltration. 4. Limited visualization of portions of the pancreas and aorta due to overlying bowel gas. Fredrick Cabello MD Administered Medications Medications (Trade) Dose Ordered Sig/Ubaldo Route PRN Reason Start Time Stop Time Status Last Admin Dose Admin Lidocaine HCl (Lidoderm 5% Patch.12 Hr) 1 patch DAILY T-DERMAL 08/03/16 09:00 08/05/16 11:00 Oxycodone/ Acetaminophen 1 tab 1 tab Q4H PRN PO PAIN 6-10 08/02/16 20:00 08/05/16 11:08 Sodium Chloride (NS 1000 ml Inj) 1,000 ml @ 100 mls/hr Q10H IV 08/02/16 20:00 08/05/16 11:13 Sodium Chloride (NS Flush) 2 ml BID IV FLUSH 08/02/16 21:00 08/04/16 08:09 Prazosin HCl (Minipress) 1 mg HS PO 08/03/16 21:00 08/04/16 21:23 Trazodone HCl (Desyrel) 50 mg HS PO 08/03/16 21:00 08/04/16 21:23 Venlafaxine HCl (Effexor) 50 mg HS PO 08/03/16 21:00 08/04/16 21:24 Insulin Detemir 50 units 50 units BID SQ 08/04/16 21:00 08/05/16 11:00 Sodium Chloride (NS 500 ml Inj) 500 ml @ 500 mls/hr Q24H IV 08/05/16 11:45 08/06/16 12:44 08/05/16 12:40 Acetaminophen (Tylenol) 650 mg Q24H PO 08/05/16 11:00 08/06/16 11:01 08/05/16 12:44 Diphenhydramine HCl (Benadryl) 25 mg Q24H PO 08/05/16 11:00 08/06/16 11:01 08/05/16 12:47 Objective Remarks GENERAL: Elderly male, sitting up in bed in nad. SKIN: Warm and dry. very faded bruise on left forearm. HEAD: Normocephalic. EYES: No scleral icterus. No injection or drainage. NECK: Supple, trachea midline. CARDIOVASCULAR: Regular rate and rhythm RESPIRATORY: Breath sounds equal bilaterally. No accessory muscle use. GASTROINTESTINAL: Abdomen soft, non-tender, nondistended. EXTREMITIES: No cyanosis NEUROLOGICAL: No obvious focal deficit. Awake, alert, and oriented x3. Back: spine is midline. no ecchymoses or hematoma. lidocaine patch over right scapula. this was removed and the skin underneath inspected. no skin changes or swelling. 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 --no associated cytopenias. no prior history of ITP. --trial IV dexamethasone 40 milligrams x3 days --LDH and haptoglobin WNL --do not believe that this is TTP or DIC. --coags WNL --may need a bone marrow biopsy. (2) Elevated bilirubin Status: Acute Plan: --Mild hyperbilirubinemia with both direct and indirect bilirubin elevation. --direct Tegan test pending --may need abdominal ultrasound Assessment 71y/o male with severe thrombocytopenia. history of hypertension, diabetes and chronic pain HPI: was sent to ED after he was found to have a low platelet count on routine labs. Plan 1. no platelet transfusion unless bleeding--platelets likely to be consumed with ITP 2. start IVIG 90G today. 3. patient advised to notify nurses immediately for any sign of bleeding. Attending Statement The exam, history, and the medical decision-making described in the above note were completed with the assistance of the mid-level provider. I reviewed and agree with the findings presented. I attest that I had a [id number] encounter with the patient on the same day, and personally performed and documented my assessment and findings in the medical record. Refractory to steroids. drop in platelets persists Trial of IVIG 1gm/kg --D1 and D 2--first dose today Abdominal U/S shows spleen size upper limit of normal hep panel normal. no evidence of MAHA. fibrinogen normal Peripheral smear show that thrombocytopenia is true w/o any clumping. no evidence of microangiopathy/no rbc fragments advised patient to be careful when ambulating to avoid fall as platelet count severely low d/w rn monitor daily CBC Chanel Quintana Aug 05, 2016 12:58 Lamberto Antunez MD Aug 05, 2016 22:27
[2016-08-05] MEDS: IMMUNE GLOBULIN IV SCH (13:52)
[2016-08-05] MEDS: D5W as prime bag (IVIG as secondary) IV SCH (13:56)
[2016-08-05 14:28] LABS: HEPATITIS B SURFACE ANTIBODY 5.3 mIU/mL
[2016-08-05] MEDS: VENLAFAXINE HCL 25 MG TAB PO SCH (21:00)
[2016-08-05] MEDS: traZODone HCL 50 MG TAB PO SCH (21:43)
[2016-08-05] MEDS: PRAZOSIN HCL 1 MG CAP PO SCH (21:44)
--- NOTE | 2016-08-05 22:20 | PD.ONC.PN ---
Objective Data Date Time Temp Pulse Resp B/P Pulse Ox O2 Delivery O2 Flow Rate FiO2 08/05/16 21:30 97.9 55 17 119/61 95 08/05/16 20:30 98.4 64 17 116/61 94 08/05/16 19:30 98.0 54 18 120/63 94 08/05/16 18:30 97.6 53 16 128/73 97 08/05/16 17:31 97.9 53 18 142/75 100 08/05/16 16:28 97.1 58 16 131/67 100 08/05/16 15:00 97.6 57 18 119/67 100 08/05/16 14:49 98.1 54 18 134/74 94 08/05/16 14:31 96.7 52 16 147/74 99 08/05/16 13:58 16 08/05/16 12:45 96.4 61 16 142/76 96 08/05/16 08:00 96.5 55 16 140/77 97 08/05/16 04:00 96.3 66 16 133/77 95 08/05/16 00:00 95.9 66 16 120/69 95 08/05/16 08/05/16 08/05/16 07:00 15:00 23:00 Intake Total 720 ml 600 ml 1834 ml Output Total 400 ml Balance 320 ml 600 ml 1834 ml Result Diagram: 08/05/16 0616 08/04/16 1032 Laboratory Results Laboratory Tests Test 08/05/16 06:16 White Blood Count 7.1 TH/MM3 Red Blood Count 3.51 MIL/MM3 Hemoglobin 10.6 GM/DL Hematocrit 30.2 % Mean Corpuscular Volume 86.1 FL Mean Corpuscular Hemoglobin 30.2 PG Mean Corpuscular Hemoglobin 35.1 % Concent Red Cell Distribution Width 13.5 % Platelet Count 2 TH/MM3 Mean Platelet Volume 10.7 FL Neutrophils (%) (Auto) 76.7 % Lymphocytes (%) (Auto) 18.7 % Monocytes (%) (Auto) 4.6 % Eosinophils (%) (Auto) 0.0 % Basophils (%) (Auto) 0.0 % Neutrophils # (Auto) 5.4 TH/MM3 Lymphocytes # (Auto) 1.3 TH/MM3 Monocytes # (Auto) 0.3 TH/MM3 Eosinophils # (Auto) 0.0 TH/MM3 Basophils # (Auto) 0.0 TH/MM3 CBC Comment AUTO DIFF Differential Comment AUTO DIFF CONFIRMED Platelet Estimate RARE Platelet Morphology Comment NORMAL Red Cell Morphology Comment NORMAL Blood Smear Pathologist Review Hepatitis B Surface Antibody, 5.3 mIU/mL Quant Hepatitis B Core IgM Antibody NEGATIVE Hepatitis C Antibody NEGATIVE HIV (1&2) Antibody NEGATIVE Imaging Studies Last 24 hours Impressions Abdomen Ultrasound 08/05/16 0000 Signed Impressions: Service Date/Time: Friday, August 05, 2016 08:35 - CONCLUSION: 1. Cholelithiasis without mural thickening or pericholecystic fluid. No intrahepatic biliary ductal dilatation. 2. Spleen is upper limits of normal in size. 3. Slight increased hepatic echotexture suggesting some degree of fatty infiltration. 4. Limited visualization of portions of the pancreas and aorta due to overlying bowel gas. Fredrick Cabello MD Administered Medications Medications (Trade) Dose Ordered Sig/Ubaldo Route PRN Reason Start Time Stop Time Status Last Admin Dose Admin Lidocaine HCl (Lidoderm 5% Patch.12 Hr) 1 patch DAILY T-DERMAL 08/03/16 09:00 08/05/16 11:00 Oxycodone/ Acetaminophen 1 tab 1 tab Q4H PRN PO PAIN 6-10 08/02/16 20:00 08/05/16 18:42 Sodium Chloride (NS 1000 ml Inj) 1,000 ml @ 100 mls/hr Q10H IV 08/02/16 20:00 08/05/16 21:44 Sodium Chloride (NS Flush) 2 ml BID IV FLUSH 08/02/16 21:00 08/04/16 08:09 Prazosin HCl (Minipress) 1 mg HS PO 08/03/16 21:00 08/05/16 21:44 Trazodone HCl (Desyrel) 50 mg HS PO 08/03/16 21:00 08/05/16 21:43 Venlafaxine HCl (Effexor) 50 mg HS PO 08/03/16 21:00 08/05/16 21:00 Insulin Detemir 50 units 50 units BID SQ 08/04/16 21:00 08/05/16 21:43 Immune Globulin 90 gm/Syringe / Bag 900 ml @ 112.5 mls/ hr Q24H IV 08/05/16 12:00 08/06/16 19:59 08/05/16 13:52 Sodium Chloride (NS 500 ml Inj) 500 ml @ 500 mls/hr Q24H IV 08/05/16 11:45 08/06/16 12:44 08/05/16 12:40 Acetaminophen (Tylenol) 650 mg Q24H PO 08/05/16 11:00 08/06/16 11:01 08/05/16 12:44 Diphenhydramine HCl 25 mg 25 mg Q24H PO 08/05/16 11:00 08/06/16 11:01 08/05/16 12:47 Dextrose (D5W 500 ml Inj) 500 ml @ 30 mls/hr Q24H IV 08/05/16 12:00 08/07/16 04:39 08/05/16 13:56 Objective Remarks GENERAL: Well-nourished, well-developed patient. SKIN: Warm and dry. HEAD: Normocephalic. EYES: No scleral icterus. No injection or drainage. NECK: Supple, trachea midline. No JVD or lymphadenopathy. LYMPHATIC: No adenopathy. CARDIOVASCULAR: Regular rate and rhythm without murmurs. RESPIRATORY: Breath sounds equal bilaterally. No accessory muscle use. GASTROINTESTINAL: Abdomen soft, non-tender, nondistended. EXTREMITIES: No cyanosis, or edema. MUSCULOSKELETAL: Adequate muscle tone. NEUROLOGICAL: No obvious focal deficit. Awake, alert, and oriented x3. PSYCHIATRIC: Appropriate mood and affect; insight and judgment normal. 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 --no associated cytopenias. no prior history of ITP. --trial IV dexamethasone 40 milligrams x3 days --LDH and haptoglobin WNL --do not believe that this is TTP or DIC. --coags WNL --may need a bone marrow biopsy. (2) Elevated bilirubin Status: Acute Plan: --Mild hyperbilirubinemia with both direct and indirect bilirubin elevation. --direct Tegan test pending --may need abdominal ultrasound Assessment 71y/o male with severe thrombocytopenia. history of hypertension, diabetes and chronic pain HPI: was sent to ED after he was found to have a low platelet count on routine labs. Plan 1. no platelet transfusion unless bleeding--platelets likely to be consumed with ITP 2. start IVIG 90G today. 3. patient advised to notify nurses immediately for any sign of bleeding. Lamberto Antunez MD Aug 05, 2016 22:19
[2016-08-06] VITALS (12 sets, daily range): BP systolic 96–175; BP diastolic 54–89; PULSE 51–63; RESP 17–20; TEMP 96.8–98.8; O2SAT 95–100
[2016-08-06] MEDS: SODIUM CHLOR 0.9% 1000 ML INJ 1,000 ML IV SCH (05:20)
[2016-08-06 05:41] LABS: AUTOMATED NEUTROPHIL # 3.7 TH/MM3 (1.8-7.7); BASOPHIL % 0.1 % (0.0-2.0); EOSINOPHIL % 0.1 % (0.0-4.0); HEMATOCRIT 29.9 % (39.0-51.0); LYMPH % 28.9 % (9.0-44.0); LYMPHOCYTE # 1.7 TH/MM3 (1.0-4.8); MEAN CELL VOLUME 86.7 FL (80.0-100.0); MEAN CORPUSCULAR HEMOGLOBIN 30.1 PG (27.0-34.0); MEAN CORPUSCULAR HGB CONC 34.7 % (32.0-36.0); MONO % 6.6 % (0.0-8.0); NEUT % 64.3 % (16.0-70.0); PLATELET COUNT 28 TH/MM3 (150-450); RED BLOOD COUNT 3.45 MIL/MM3 (4.50-5.90); RED CELL DISTRIBUTION WIDTH 13.5 % (11.6-17.2); WHITE BLOOD COUNT 5.8 TH/MM3 (4.0-11.0)
[2016-08-06 05:49] LABS: HEMO FLAGS AUTO DIFF
[2016-08-06] MEDS: INSULIN ASPART SUPPLEMENTAL SCALE SQ SCH ×4 (06:39→21:00)
[2016-08-06 07:43] LABS: ANION GAP 10 MEQ/L (5-15); BICARBONATE 25.2 MEQ/L (21.0-32.0); BLOOD UREA NITROGEN 23 MG/DL (7-18); CHLORIDE 106 MEQ/L (98-107); GLOMERULAR FILTRATION RATE 73 ML/MIN (>89); POTASSIUM 3.2 MEQ/L (3.5-5.1); SODIUM (NA) 141 MEQ/L (136-145)
[2016-08-06] MEDS ORDERED: POTASSIUM CHLORIDE 10 MEQ CONTROLLED RELEASE TAB PO ONE (08:45)
--- NOTE | 2016-08-06 08:51 | HHI.PR ---
Subjective Remarks no headaches, nausea or vomiting no melena or hematochezia mild leg discomfort- tibial aspect- anterior aspect- no swelling Objective Vitals Vital Signs Date Time Temp Pulse Resp B/P Pulse Ox O2 Delivery O2 Flow Rate FiO2 08/06/16 04:00 97.3 63 17 129/67 96 08/06/16 00:00 97.3 61 17 96/54 97 08/05/16 21:30 97.9 55 17 119/61 95 08/05/16 20:30 98.4 64 17 116/61 94 08/05/16 19:30 98.0 54 18 120/63 94 08/05/16 18:30 97.6 53 16 128/73 97 08/05/16 17:31 97.9 53 18 142/75 100 08/05/16 16:28 97.1 58 16 131/67 100 08/05/16 15:00 97.6 57 18 119/67 100 08/05/16 14:49 98.1 54 18 134/74 94 08/05/16 14:31 96.7 52 16 147/74 99 08/05/16 13:58 16 08/05/16 12:45 96.4 61 16 142/76 96 I/O 08/05/16 08/05/16 08/05/16 08/06/16 08/06/16 08/06/16 07:00 15:00 23:00 07:00 15:00 23:00 Intake Total 720 ml 600 ml 1834 ml 873 ml Output Total 400 ml Balance 320 ml 600 ml 1834 ml 873 ml Intake Oral 720 ml 600 ml IV Total 1834 ml 873 ml Output Urine Total 400 ml Result Diagram: 08/06/16 0438 08/06/16 0655 Imaging Last Impressions Abdomen Ultrasound 08/05/16 0000 Signed Impressions: Service Date/Time: Friday, August 05, 2016 08:35 - CONCLUSION: 1. Cholelithiasis without mural thickening or pericholecystic fluid. No intrahepatic biliary ductal dilatation. 2. Spleen is upper limits of normal in size. 3. Slight increased hepatic echotexture suggesting some degree of fatty infiltration. 4. Limited visualization of portions of the pancreas and aorta due to overlying bowel gas. Fredrick Cabello MD Lower Extremity Ultrasound 08/03/16 0000 Signed Impressions: Service Date/Time: Wednesday, August 03, 2016 12:06 - CONCLUSION: Normal examination. Esequiel Robledo MD Objective Remarks skin- ecchymoses-- fading awake and alert lungs clear regular rhythm abdomens soft, good bowel sounds lower extremities no edema, left leg- tibial aspect no tenderness, no hematoma, no calf tenderness A/P Problem List: (1) Thrombocytopenia ICD Code: D69.6 Status: Acute (2) Dehydration ICD Code: E86.0 Status: Acute (3) Chronic pain ICD Code: G89.29 Status: Acute (4) DM (diabetes mellitus) ICD Code: E11.9 Status: Acute Assessment and Plan 71 years old male 1. Severe Thrombocytopenia: no response with steroids. started on IVIG- platelet count improving . Hgb stable. ff by Dr. Antunez . 2. SHMUEL-- improved: improved.GFR 57, BUN 25. IVF for hydration. NO NSAIDs 3. Chronic Pain: home Percocet. 4. DM: Sliding scale w/ Accu-cheks. erratic Blood sugars with IV steroids. Restart long acting insulin. Hold Metformin in light of decreased GFR. Hold - Levemir to 50 units bid. continue sliding scale. continue adjusting - last dose of Dexamethasone today states at home on Lantus 100 units HS and humulin R - unrecalled dose. A1C pending 5. DVT Prophylaxis: Pharmacologic contraindication in light of profound thrombocytopenia.. up and ambulating 6. Social work for d/c planning as needed. 7. Hypokalemia- change IVF with KCL. KCL 40 meq po x 1. recheck in Shawna Rosen MD Aug 06, 2016 08:51
[2016-08-06 09:19] LABS: PLATELET ESTIMATE SMEAR LOW (NORMAL); PLATELET MORPHOLOGY NORMAL (NORMAL); SCAN/DIFF AUTO DIFF CONFIRMED
[2016-08-06] MEDS: LIDOCAINE HCL 5% PATCH T-DERMAL SCH (09:46)
[2016-08-06] MEDS: INSULIN DETEMIR 100 UNITS/ML VIAL SQ SCH ×2 (09:46→21:45)
[2016-08-06] MEDS: SODIUM CHLORIDE 0.9% FLUSH 10 ML FLUSH IV FLUSH SCH ×2 (09:46→21:44)
[2016-08-06] MEDS: NS + KCL 20 MEQ INJ 1,000 ML IV SCH (09:48)
[2016-08-06] MEDS: NS 500 ML Pre-hydration IV SCH (12:19)
[2016-08-06] MEDS: ACETAMINOPHEN 325 MG TAB Pre-med PO SCH (12:22)
[2016-08-06] MEDS: DIPHENHYDRAMINE HCL 25 MG CAP Pre-med PO SCH (12:22)
[2016-08-06] MEDS: D5W as prime bag (IVIG as secondary) IV SCH (13:28)
[2016-08-06] MEDS: IMMUNE GLOBULIN IV SCH (13:29)
[2016-08-06 17:10] LABS: HEMOGLOBIN A1a 0.9 %; HEMOGLOBIN A1b 1.5 %; HEMOGLOBIN Ao 86.3 %; HEMOGLOBIN LA1C 1.8 %; HEMOGLOBIN P3 4.9 %
[2016-08-06] MEDS: oxyCODONE/ACETAMINOPHEN 10 MG/325 MG TAB PO PRN ×2 (17:31→21:44)
[2016-08-06] MEDS: traZODone HCL 50 MG TAB PO SCH (21:43)
[2016-08-06] MEDS: PRAZOSIN HCL 1 MG CAP PO SCH (21:43)
[2016-08-06] MEDS: VENLAFAXINE HCL 25 MG TAB PO SCH (21:52)
--- NOTE | 2016-08-06 23:00 | PD.ONC.PN ---
Subjective Subjective Remarks no bleeding resting comfortably no TOUSSAINT/blurry vision tolerated IVIG yesterday d/w rn Objective Data Date Time Temp Pulse Resp B/P Pulse Ox O2 Delivery O2 Flow Rate FiO2 08/06/16 22:44 18 08/06/16 20:00 98.8 61 17 154/72 95 08/06/16 19:13 96.8 62 18 157/88 95 08/06/16 18:23 98.0 59 18 156/83 96 08/06/16 17:25 97.4 55 140/84 100 08/06/16 16:00 96.8 51 18 140/83 99 08/06/16 15:24 97.6 55 18 120/72 97 08/06/16 14:08 98.0 52 20 143/80 96 08/06/16 13:53 98.8 54 18 154/89 96 08/06/16 12:00 98.2 61 18 175/82 95 08/06/16 08:00 98.2 54 20 129/71 97 08/06/16 04:00 97.3 63 17 129/67 96 08/06/16 00:00 97.3 61 17 96/54 97 08/06/16 08/06/16 08/06/16 07:00 15:00 23:00 Intake Total 873 ml 1476 ml Balance 873 ml 1476 ml Result Diagram: 08/06/16 0438 08/06/16 0655 Laboratory Results Laboratory Tests Test 08/06/16 08/06/16 04:38 06:55 White Blood Count 5.8 TH/MM3 Red Blood Count 3.45 MIL/MM3 Hemoglobin 10.4 GM/DL Hematocrit 29.9 % Mean Corpuscular Volume 86.7 FL Mean Corpuscular Hemoglobin 30.1 PG Mean Corpuscular Hemoglobin 34.7 % Concent Red Cell Distribution Width 13.5 % Platelet Count 28 TH/MM3 Mean Platelet Volume 10.4 FL Neutrophils (%) (Auto) 64.3 % Lymphocytes (%) (Auto) 28.9 % Monocytes (%) (Auto) 6.6 % Eosinophils (%) (Auto) 0.1 % Basophils (%) (Auto) 0.1 % Neutrophils # (Auto) 3.7 TH/MM3 Lymphocytes # (Auto) 1.7 TH/MM3 Monocytes # (Auto) 0.4 TH/MM3 Eosinophils # (Auto) 0.0 TH/MM3 Basophils # (Auto) 0.0 TH/MM3 CBC Comment AUTO DIFF Differential Comment AUTO DIFF CONFIRMED Platelet Estimate LOW Platelet Morphology Comment NORMAL Sodium Level 141 MEQ/L Potassium Level 3.2 MEQ/L Chloride Level 106 MEQ/L Carbon Dioxide Level 25.2 MEQ/L Anion Gap 10 MEQ/L Blood Urea Nitrogen 23 MG/DL Creatinine 1.01 MG/DL Estimat Glomerular Filtration 73 ML/MIN Rate Random Glucose 148 MG/DL Hemoglobin A1c 5.6 % Calcium Level 7.8 MG/DL Administered Medications Medications (Trade) Dose Ordered Sig/Ubaldo Route PRN Reason Start Time Stop Time Status Last Admin Dose Admin Lidocaine HCl (Lidoderm 5% Patch.12 Hr) 1 patch DAILY T-DERMAL 08/03/16 09:00 08/06/16 09:46 Oxycodone/ Acetaminophen (Percocet 5-325 Mg) 1 tab Q6H PRN PO PAIN 1-5 08/02/16 18:45 08/06/16 12:25 Oxycodone/ Acetaminophen (Percocet 10-325 Mg) 1 tab Q4H PRN PO PAIN 6-10 08/02/16 20:00 08/06/16 21:44 Sodium Chloride (NS Flush) 2 ml BID IV FLUSH 08/02/16 21:00 08/06/16 21:44 Prazosin HCl (Minipress) 1 mg HS PO 08/03/16 21:00 08/06/16 21:43 Trazodone HCl (Desyrel) 50 mg HS PO 08/03/16 21:00 08/06/16 21:43 Venlafaxine HCl (Effexor) 50 mg HS PO 08/03/16 21:00 08/06/16 21:52 Insulin Detemir 50 units 50 units BID SQ 08/04/16 21:00 08/06/16 21:45 Dextrose 500 ml @ 30 mls/hr Q24H IV 08/05/16 12:00 08/07/16 04:39 08/06/16 13:28 Potassium Chloride/Sodium Chloride (NS + KCl 20 Meq Inj) 1,000 ml @ 42 mls/hr [id number] IV 08/06/16 08:45 08/06/16 09:48 Objective Remarks GENERAL: nad SKIN: Warm and dry. NECK: Supple, trachea midline. No JVD or lymphadenopathy. LYMPHATIC: No adenopathy. CARDIOVASCULAR: Regular rate and rhythm without murmurs. RESPIRATORY: Breath sounds equal bilaterally. No accessory muscle use. GASTROINTESTINAL: Abdomen soft, non-tender, nondistended. EXTREMITIES: No cyanosis, or edema. 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 --no associated cytopenias. no prior history of ITP. --trial IV dexamethasone 40 milligrams x3 days --LDH and haptoglobin WNL --do not believe that this is TTP or DIC. --coags WNL --may need a bone marrow biopsy. (2) Elevated bilirubin Status: Acute Plan: --Mild hyperbilirubinemia with both direct and indirect bilirubin elevation. --direct Tegan test pending --may need abdominal ultrasound Assessment 71y/o male with severe thrombocytopenia. history of hypertension, diabetes and chronic pain HPI: was sent to ED after he was found to have a low platelet count on routine labs. Plan 1. Platelet are up today after IVIG. This is likely ITP. no platelet transfusion unless bleeding 2. IVIG D# 2 today 3. Needs to monitored for 24 hours after 2nd treatment for sustained response 4. Plan for bone marrow biopsy in AM. send for Flow cytometry/Cytogenetics/Flow 5. discussed with patient in detail 6. Lamberto López MD Aug 06, 2016 22:59
[2016-08-07] VITALS (8 sets, daily range): BP systolic 98–157; BP diastolic 56–73; PULSE 51–68; RESP 16–19; TEMP 97.2–99.5; O2SAT 92–98
[2016-08-07] MEDS: INSULIN ASPART SUPPLEMENTAL SCALE SQ SCH ×4 (05:33→21:00)
[2016-08-07] MEDS: DEXTROSE 50% IN WATER 50 ML VIAL(D50) IV PUSH PRN ×2 (05:36→06:41)
[2016-08-07] MEDS: oxyCODONE/ACETAMINOPHEN 10 MG/325 MG TAB PO PRN ×3 (07:24→21:38)
[2016-08-07 07:30] LABS: AUTOMATED NEUTROPHIL # 2.7 TH/MM3 (1.8-7.7); BASOPHIL % 0.1 % (0.0-2.0); EOSINOPHIL # 0.1 TH/MM3 (0-0.4); EOSINOPHIL % 1.1 % (0.0-4.0); HEMATOCRIT 31.3 % (39.0-51.0); LYMPH % 36.3 % (9.0-44.0); LYMPHOCYTE # 1.8 TH/MM3 (1.0-4.8); MEAN CELL VOLUME 88.1 FL (80.0-100.0); MEAN CORPUSCULAR HEMOGLOBIN 29.5 PG (27.0-34.0); MEAN CORPUSCULAR HGB CONC 33.5 % (32.0-36.0); MONO % 9.9 % (0.0-8.0); NEUT % 52.6 % (16.0-70.0); PLATELET COUNT 46 TH/MM3 (150-450); RED BLOOD COUNT 3.55 MIL/MM3 (4.50-5.90); WHITE BLOOD COUNT 5.1 TH/MM3 (4.0-11.0)
[2016-08-07 07:42] LABS: HEMO FLAGS AUTO DIFF
[2016-08-07 07:45] LABS: BICARBONATE 26.1 MEQ/L (21.0-32.0); POTASSIUM 3.4 MEQ/L (3.5-5.1)
[2016-08-07] MEDS ORDERED: LIDOCAINE 1%/EPINEPHrine 1:100,000 SOLN 20 ML VIAL ONE (08:07)
[2016-08-07] MEDS ORDERED: MIDAZOLAM HCL 5 MG/5 ML VIAL ONE (08:31)
[2016-08-07] MEDS ORDERED: fentaNYL CITRATE 250 MCG/5 ML AMP ONE (08:31)
[2016-08-07 08:33] LABS: OVALOCYTES 1+ (NORMAL); PLATELET ESTIMATE SMEAR LOW (NORMAL); PLATELET MORPHOLOGY NORMAL (NORMAL); SCAN/DIFF AUTO DIFF CONFIRMED
[2016-08-07] MEDS: NS + KCL 20 MEQ INJ 1,000 ML IV SCH (08:34)
[2016-08-07 09:29] LABS: BONE MARROW PROCESSING COMPLETE; IRON STAIN DONE; JENNER GIEMSA STAIN DONE
--- NOTE | 2016-08-07 10:14 | RADRPT ---
EXAM DATE/TIME: 08/07/2016 08:39 [place] COMPARISON: No previous studies available for comparison. INDICATIONS : Thrombocytopenia. SEDATION TIME: 30 minutes BIOPSY SITE: Right ilium. MEDICATION(S): 1.) 2 mg midazolam (Versed) IV 2.) 100 mcg fentanyl (Sublimaze) IV DEVICE(S): 1.) 11 gauge Bone marrow biopsy needle MEDICAL HISTORY : Diabetes mellitus type 2. SURGICAL HISTORY : None. ENCOUNTER: Initial ACUITY: 1 day PAIN SCORE: 0/10 LOCATION: Right upper quadrant A total of two core specimen(s) were obtained and sent to the laboratory for pathologic evaluation. PROCEDURE: 1. CT guided bone marrow biopsy. Prior to the procedure informed consent was obtained. Any appropriate prior imaging studies were rev iewed. Using automated exposure control and adjustment of the mA and/or kV according to patient size , radiation dose was kept as low as reasonably achievable to obtain optimal diagnostic quality images . The site was prepped in a sterile fashion. Full sterile technique was used, including cap, mask, raleigh rile gloves and gown and a large sterile sheet. Hand hygiene and 2% chlorhexidine and/or betadine/al cohol prep was utilized per protocol for cutaneous antisepsis. The skin and subcutaneous tissues wer e infiltrated with local anesthetic solution. With CT guidance the previously identified target was localized. Biopsy was performed using the presc ribed needle as above. Following biopsy marrow aspiration was performed with repeat puncture. Adequa te hemostasis was obtained with compression at the puncture site. Follow-up CT scan reveals no hemorrhage. Conscious sedation was performed with the prescribed dosages and duration as above in the presence of an independent trained radiology nurse to assist in the monitoring of the patient. EKG and oximetry remained stable throughout the procedure. The patient tolerated the procedure well and there were no complications. The patient was sent to Radiology Outpatient Unit in stable condition. CONCLUSION: 1. Uncomplicated CT guided bone marrow aspirate. 2. Uncomplicated CT guided bone marrow biopsy. Slade Henriquez MD FACR on August 07, 2016 at 10:12 Board Certified Radiologist. This report was verified electronically.
[2016-08-07] MEDS: INSULIN DETEMIR 100 UNITS/ML VIAL SQ SCH ×2 (10:59→21:37)
[2016-08-07] MEDS: LIDOCAINE HCL 5% PATCH T-DERMAL SCH (11:00)
[2016-08-07] MEDS: SODIUM CHLORIDE 0.9% FLUSH 10 ML FLUSH IV FLUSH SCH ×2 (11:05→21:41)
--- NOTE | 2016-08-07 13:49 | PD.ONC.PN ---
Subjective Subjective Remarks Afebrile overnight. Patient resting comfortably without complaint. He is eager to know when he can go home. Just back from bone marrow biopsy. Objective Data Date Time Temp Pulse Resp B/P Pulse Ox O2 Delivery O2 Flow Rate FiO2 08/07/16 12:30 97.2 54 18 113/66 97 08/07/16 09:55 51 17 127/67 94 08/07/16 09:25 55 18 133/73 92 08/07/16 09:10 98.7 56 19 132/70 92 08/07/16 04:00 99.5 60 18 115/56 96 08/07/16 00:00 98.1 64 17 98/57 92 08/06/16 22:44 18 08/06/16 20:00 98.8 61 17 154/72 95 08/06/16 19:13 96.8 62 18 157/88 95 08/06/16 18:23 98.0 59 18 156/83 96 08/06/16 17:25 97.4 55 140/84 100 08/06/16 16:00 96.8 51 18 140/83 99 08/06/16 15:24 97.6 55 18 120/72 97 08/06/16 14:08 98.0 52 20 143/80 96 08/06/16 13:53 98.8 54 18 154/89 96 Result Diagram: 08/07/16 0640 08/07/16 0640 Laboratory Results Laboratory Tests Test 08/07/16 06:40 White Blood Count 5.1 TH/MM3 Red Blood Count 3.55 MIL/MM3 Hemoglobin 10.5 GM/DL Hematocrit 31.3 % Mean Corpuscular Volume 88.1 FL Mean Corpuscular Hemoglobin 29.5 PG Mean Corpuscular Hemoglobin 33.5 % Concent Red Cell Distribution Width 13.0 % Platelet Count 46 TH/MM3 Mean Platelet Volume 9.7 FL Neutrophils (%) (Auto) 52.6 % Lymphocytes (%) (Auto) 36.3 % Monocytes (%) (Auto) 9.9 % Eosinophils (%) (Auto) 1.1 % Basophils (%) (Auto) 0.1 % Neutrophils # (Auto) 2.7 TH/MM3 Lymphocytes # (Auto) 1.8 TH/MM3 Monocytes # (Auto) 0.5 TH/MM3 Eosinophils # (Auto) 0.1 TH/MM3 Basophils # (Auto) 0.0 TH/MM3 CBC Comment AUTO DIFF Differential Comment AUTO DIFF CONFIRMED Platelet Estimate LOW Platelet Morphology Comment NORMAL Ovalocytes 1+ Sodium Level 138 MEQ/L Potassium Level 3.4 MEQ/L Chloride Level 105 MEQ/L Carbon Dioxide Level 26.1 MEQ/L Anion Gap 7 MEQ/L Blood Urea Nitrogen 19 MG/DL Creatinine 0.86 MG/DL Estimat Glomerular Filtration 88 ML/MIN Rate Random Glucose 77 MG/DL Calcium Level 7.8 MG/DL Imaging Studies Last 24 hours Impressions Bone Biopsy CT 08/07/16 0600 Signed Impressions: Service Date/Time: Sunday, August 07, 2016 08:39 - CONCLUSION: 1. Uncomplicated CT guided bone marrow aspirate. 2. Uncomplicated CT guided bone marrow biopsy. Slade Henriquez MD FACR Administered Medications Medications (Trade) Dose Ordered Sig/Ubaldo Route PRN Reason Start Time Stop Time Status Last Admin Dose Admin Lidocaine HCl (Lidoderm 5% Patch.12 Hr) 1 patch DAILY T-DERMAL 08/03/16 09:00 08/07/16 11:00 Oxycodone/ Acetaminophen (Percocet 5-325 Mg) 1 tab Q6H PRN PO PAIN 1-5 08/02/16 18:45 08/06/16 12:25 Oxycodone/ Acetaminophen (Percocet 10-325 Mg) 1 tab Q4H PRN PO PAIN 6-10 08/02/16 20:00 08/07/16 07:24 Sodium Chloride (NS Flush) 2 ml BID IV FLUSH 08/02/16 21:00 08/07/16 11:05 Dextrose (D50w (Vial) Inj) 25 ml UNSCH PRN IV PUSH HYPOGLYCEMIA-SEE COMMENTS 08/02/16 22:15 08/07/16 06:41 Prazosin HCl (Minipress) 1 mg HS PO 08/03/16 21:00 08/06/16 21:43 Trazodone HCl (Desyrel) 50 mg HS PO 08/03/16 21:00 08/06/16 21:43 Venlafaxine HCl (Effexor) 50 mg HS PO 08/03/16 21:00 08/06/16 21:52 Insulin Detemir 50 units 50 units BID SQ 08/04/16 21:00 08/07/16 10:59 Potassium Chloride/Sodium Chloride (NS + KCl 20 Meq Inj) 1,000 ml @ 42 mls/hr [id number] IV 08/06/16 08:45 08/06/16 09:48 Objective Remarks GENERAL: Elderly male, sitting up in bed in nad. SKIN: Warm and dry. HEAD: Normocephalic. EYES: No injection or drainage. NECK: Supple, trachea midline. CARDIOVASCULAR: Regular rate and rhythm RESPIRATORY: Breath sounds equal bilaterally. No accessory muscle use. GASTROINTESTINAL: Abdomen soft, non-tender, nondistended. EXTREMITIES: No cyanosis NEUROLOGICAL: awake and alert, normal speech. moving all extremities. 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 --no associated cytopenias. no prior history of ITP. --LDH and haptoglobin WNL --s/p Decadron and IVIG --fs faxed to new patient referrals, patient also advised to call primary care physician at [place] and schedule follow up appointment (2) Elevated bilirubin Status: Acute Plan: --Mild hyperbilirubinemia with both direct and indirect bilirubin elevation. --direct Tegan test pending --may need abdominal ultrasound Assessment 71y/o male with severe thrombocytopenia. history of hypertension, diabetes and chronic pain HPI: was sent to ED after he was found to have a low platelet count on routine labs. Plan 1. bone marrow biopsy today 2. fs faxed to new patient referrals for follow up. 3. monitor CBC 4. if platelets continue to improve will clear for discharge tomorrow Attending Statement The exam, history, and the medical decision-making described in the above note were completed with the assistance of the mid-level provider. I reviewed and agree with the findings presented. I attest that I had a [id number] encounter with the patient on the same day, and personally performed and documented my assessment and findings in the medical record. Bone marow biopsy today PLts continue to go up no bleeding normocytic anemia -- get anemia studies. Ok to d/c in AM. if PLT count stable. Will need CB check outpatient on Friday. F/u in clinic in 1 week. d/w Chanel Tinoco Aug 07, 2016 13:49 Lamberto Antunez MD Aug 07, 2016 22:52
--- NOTE | 2016-08-07 15:59 | HHI.PR ---
Subjective Remarks feels great, no complains of headaches, bleeding, pain had a good BM today- brown stools Objective Vitals Vital Signs Date Time Temp Pulse Resp B/P Pulse Ox O2 Delivery O2 Flow Rate FiO2 08/07/16 12:30 97.2 54 18 113/66 97 08/07/16 09:55 51 17 127/67 94 08/07/16 09:25 55 18 133/73 92 08/07/16 09:10 98.7 56 19 132/70 92 08/07/16 04:00 99.5 60 18 115/56 96 08/07/16 00:00 98.1 64 17 98/57 92 08/06/16 22:44 18 08/06/16 20:00 98.8 61 17 154/72 95 08/06/16 19:13 96.8 62 18 157/88 95 08/06/16 18:23 98.0 59 18 156/83 96 08/06/16 17:25 97.4 55 140/84 100 08/06/16 16:00 96.8 51 18 140/83 99 I/O 08/06/16 08/06/16 08/06/16 08/07/16 08/07/16 08/07/16 07:00 15:00 23:00 07:00 15:00 23:00 Intake Total 873 ml 1476 ml Balance 873 ml 1476 ml Intake Oral 600 ml IV Total 873 ml 876 ml # Voids 3 1 # Bowel Movements 2 1 Result Diagram: 08/07/16 0640 08/07/16 0640 Imaging Last Impressions Bone Biopsy CT 08/07/16 0600 Signed Impressions: Service Date/Time: Sunday, August 07, 2016 08:39 - CONCLUSION: 1. Uncomplicated CT guided bone marrow aspirate. 2. Uncomplicated CT guided bone marrow biopsy. Slade Henriquez MD FACR Abdomen Ultrasound 08/05/16 0000 Signed Impressions: Service Date/Time: Friday, August 05, 2016 08:35 - CONCLUSION: 1. Cholelithiasis without mural thickening or pericholecystic fluid. No intrahepatic biliary ductal dilatation. 2. Spleen is upper limits of normal in size. 3. Slight increased hepatic echotexture suggesting some degree of fatty infiltration. 4. Limited visualization of portions of the pancreas and aorta due to overlying bowel gas. Fredrick Cabello MD Lower Extremity Ultrasound 08/03/16 0000 Signed Impressions: Service Date/Time: Wednesday, August 03, 2016 12:06 - CONCLUSION: Normal examination. Esequiel Robledo MD Objective Remarks skin- ecchymoses-- fading awake and alert lungs clear regular rhythm abdomens soft, good bowel sounds lower extremities no edema, left leg- tibial aspect no tenderness, no hematoma, no calf tenderness Procedures BM biopsy A/P Problem List: (1) Thrombocytopenia ICD Code: D69.6 Status: Acute (2) Dehydration ICD Code: E86.0 Status: Acute (3) Chronic pain ICD Code: G89.29 Status: Acute (4) DM (diabetes mellitus) ICD Code: E11.9 Status: Acute Assessment and Plan 71 years old male 1. Severe Thrombocytopenia: no response with steroids. started on IVIG- platelet count improving . Hgb stable. ff by Dr. Antunez . 2. SHMUEL-- improved: improved.GFR 57, BUN 25. IVF for hydration. NO NSAIDs 3. Chronic Pain: home Percocet. 4. DM: Sliding scale w/ Accu-cheks. erratic Blood sugars with IV steroids. Restart long acting insulin. Hold Metformin in light of decreased GFR. Hold - Levemir to 50 units bid. continue sliding scale. continue adjusting - last dose of Dexamethasone today states at home on Lantus 100 units HS and humulin R - unrecalled dose. A1C pending better readings. BMP oending 5. DVT Prophylaxis: Pharmacologic contraindication in light of profound thrombocytopenia.. up and ambulating 6. Social work for d/c planning as needed. 7. Hypokalemia- give another 30 meq po x 1 DC hopefully tomorrow Shawna Serrano MD Aug 07, 2016 15:59
[2016-08-07] MEDS ORDERED: POTASSIUM CHLORIDE 10 MEQ CONTROLLED RELEASE TAB PO ONE (16:00)
[2016-08-07] MEDS: VENLAFAXINE HCL 25 MG TAB PO SCH (21:37)
[2016-08-07] MEDS: PRAZOSIN HCL 1 MG CAP PO SCH (21:38)
[2016-08-07] MEDS: traZODone HCL 50 MG TAB PO SCH (21:38)
[2016-08-08] VITALS: BP 106/57; PULSE 59; RESP 17; TEMP 97.5; O2SAT 94
[2016-08-08 04:00] VITALS: BP 133/63; PULSE 57; RESP 16; TEMP 97.1; O2SAT 99
[2016-08-08] MEDS: INSULIN ASPART SUPPLEMENTAL SCALE SQ SCH ×2 (05:52→11:00)
[2016-08-08 08:00] VITALS: BP 115/61; PULSE 69; RESP 16; TEMP 97.7; O2SAT 97
--- NOTE | 2016-08-08 08:09 | HHI.PR ---
Subjective Remarks awake and alert, no abdominal pain, no headaches no report of melena or hematochezia, no abdominal pain Objective Vitals Vital Signs Date Time Temp Pulse Resp B/P Pulse Ox O2 Delivery O2 Flow Rate FiO2 08/08/16 04:00 97.1 57 16 133/63 99 08/08/16 00:00 97.5 59 17 106/57 94 08/07/16 22:38 18 08/07/16 20:00 97.7 68 18 133/66 98 08/07/16 16:00 98.3 58 157/73 98 08/07/16 16:00 98.3 55 16 157/73 98 08/07/16 12:30 97.2 54 18 113/66 97 08/07/16 09:55 51 17 127/67 94 08/07/16 09:25 55 18 133/73 92 08/07/16 09:10 98.7 56 19 132/70 92 I/O 08/07/16 08/07/16 08/07/16 08/08/16 08/08/16 08/08/16 07:00 15:00 23:00 07:00 15:00 23:00 Intake Total 360 ml 480 ml Output Total 0 ml Balance 360 ml 480 ml Intake Oral 360 ml 480 ml Output Urine Total 0 ml # Voids 3 2 # Bowel Movements 1 Result Diagram: 08/07/16 0640 08/07/16 0640 Imaging Last Impressions Bone Biopsy CT 08/07/16 0600 Signed Impressions: Service Date/Time: Sunday, August 07, 2016 08:39 - CONCLUSION: 1. Uncomplicated CT guided bone marrow aspirate. 2. Uncomplicated CT guided bone marrow biopsy. Slade Henriquez MD FACR Abdomen Ultrasound 08/05/16 0000 Signed Impressions: Service Date/Time: Friday, August 05, 2016 08:35 - CONCLUSION: 1. Cholelithiasis without mural thickening or pericholecystic fluid. No intrahepatic biliary ductal dilatation. 2. Spleen is upper limits of normal in size. 3. Slight increased hepatic echotexture suggesting some degree of fatty infiltration. 4. Limited visualization of portions of the pancreas and aorta due to overlying bowel gas. Fredrick Cabello MD Lower Extremity Ultrasound 08/03/16 0000 Signed Impressions: Service Date/Time: Saturday, August 03, 2016 12:06 - CONCLUSION: Normal examination. Esequiel Robledo MD Objective Remarks skin- ecchymoses-- almost resolved awake and alert lungs clear regular rhythm abdomens soft, good bowel sounds lower extremities no edema, no calf tenderness Procedures BM biopsy A/P Problem List: (1) Thrombocytopenia ICD Code: D69.6 Status: Acute (2) Dehydration ICD Code: E86.0 Status: Acute (3) Chronic pain ICD Code: G89.29 Status: Acute (4) DM (diabetes mellitus) ICD Code: E11.9 Status: Acute Assessment and Plan 71 years old male 1. Severe Thrombocytopenia: no response with steroids. received on IVIG- platelet count improving . Hgb stable. ff by Dr. Antunez . 2. SHMUEL-- improved: NO NSAID 3. Chronic Pain: home Percocet. 4. DM: Sliding scale w/ Accu-cheks. erratic Blood sugars with IV steroids. Restart long acting insulin. Hold Metformin in light of decreased GFR. AiC- 5.6 erratic readings- -due to pulse steroids- patient monitor blood sugars at home. d/w him- good hypoglycemic awareness discuss with him and family- regarding starting out with lower HS Lantus and monitor 5. DVT Prophylaxis: Pharmacologic contraindication in light of profound thrombocytopenia.. up and ambulating 6. Social work for d/c planning as needed. 7. Hypokalemia- give another 30 meq po x 1 08/07. recheck today DC- CM consult for home nursing- DC today if f platelet continues to improve and cleared with Hematology Shawna Serrano MD Aug 08, 2016 08:09
[2016-08-08] MEDS: LIDOCAINE HCL 5% PATCH T-DERMAL SCH (08:17)
[2016-08-08] MEDS: SODIUM CHLORIDE 0.9% FLUSH 10 ML FLUSH IV FLUSH SCH (08:17)
--- NOTE | 2016-08-08 08:42 | HHI.FF ---
Face to Face Verification Diagnosis: (1) Thrombocytopenia (2) DM (diabetes mellitus) Home Health Nursing Order: Medical education Signs/symptoms of disease process Diabetic education Nursing assessment with vital signs Home Health Aide Order: To Assist In: compliance analyst and meal prep [employer] Order: To Evaluate: Living conditions/environment, Support services Order: To Provide: Community services I have seen patient Sujit Holcomb on 08/08/16. My clinical findings support the need for the requested home health care services because: Ltd mobility - disease progression Need for psychosocial assistance I certify that my clinical findings support that this patient is homebound because: Need for psychosocial assistance Shawna Serrano MD Aug 08, 2016 08:42
[2016-08-08 08:58] LABS: AUTOMATED NEUTROPHIL # 2.8 TH/MM3 (1.8-7.7); BASOPHIL % 0.3 % (0.0-2.0); EOSINOPHIL # 0.1 TH/MM3 (0-0.4); EOSINOPHIL % 1.9 % (0.0-4.0); LYMPH % 35.3 % (9.0-44.0); LYMPHOCYTE # 1.8 TH/MM3 (1.0-4.8); MEAN CELL VOLUME 86.1 FL (80.0-100.0); MEAN CORPUSCULAR HGB CONC 34.9 % (32.0-36.0); MONO % 7.7 % (0.0-8.0); NEUT % 54.8 % (16.0-70.0); PLATELET COUNT 67 TH/MM3 (150-450); RED BLOOD COUNT 3.95 MIL/MM3 (4.50-5.90); RED CELL DISTRIBUTION WIDTH 13.2 % (11.6-17.2)
[2016-08-08 09:04] LABS: HEMO FLAGS AUTO DIFF
[2016-08-08 09:44] LABS: PLATELET ESTIMATE SMEAR LOW (NORMAL); PLATELET MORPHOLOGY NORMAL (NORMAL); SCAN/DIFF AUTO DIFF CONFIRMED
--- NOTE | 2016-08-08 11:49 | PD.ONC.PN ---
Subjective Subjective Remarks Afebrile overnight. Patient resting comfortably with daughter at bedside. Eager to go home. No complaints. Objective Data Date Time Temp Pulse Resp B/P Pulse Ox O2 Delivery O2 Flow Rate FiO2 08/08/16 08:00 97.7 69 16 115/61 97 08/08/16 04:00 97.1 57 16 133/63 99 08/08/16 00:00 97.5 59 17 106/57 94 08/07/16 22:38 18 08/07/16 20:00 97.7 68 18 133/66 98 08/07/16 16:00 98.3 58 157/73 98 08/07/16 16:00 98.3 55 16 157/73 98 08/07/16 12:30 97.2 54 18 113/66 97 Result Diagram: 08/08/16 0750 08/07/16 0640 Laboratory Results Laboratory Tests Test 08/08/16 07:50 White Blood Count 5.0 TH/MM3 Red Blood Count 3.95 MIL/MM3 Hemoglobin 11.9 GM/DL Hematocrit 34.0 % Mean Corpuscular Volume 86.1 FL Mean Corpuscular Hemoglobin 30.0 PG Mean Corpuscular Hemoglobin 34.9 % Concent Red Cell Distribution Width 13.2 % Platelet Count 67 TH/MM3 Mean Platelet Volume 9.5 FL Neutrophils (%) (Auto) 54.8 % Lymphocytes (%) (Auto) 35.3 % Monocytes (%) (Auto) 7.7 % Eosinophils (%) (Auto) 1.9 % Basophils (%) (Auto) 0.3 % Neutrophils # (Auto) 2.8 TH/MM3 Lymphocytes # (Auto) 1.8 TH/MM3 Monocytes # (Auto) 0.4 TH/MM3 Eosinophils # (Auto) 0.1 TH/MM3 Basophils # (Auto) 0.0 TH/MM3 CBC Comment AUTO DIFF Differential Comment AUTO DIFF CONFIRMED Platelet Estimate LOW Platelet Morphology Comment NORMAL Administered Medications Medications (Trade) Dose Ordered Sig/Ubaldo Route PRN Reason Start Time Stop Time Status Last Admin Dose Admin Lidocaine HCl (Lidoderm 5% Patch.12 Hr) 1 patch DAILY T-DERMAL 08/03/16 09:00 08/08/16 08:17 Oxycodone/ Acetaminophen (Percocet 5-325 Mg) 1 tab Q6H PRN PO PAIN 1-5 08/02/16 18:45 08/06/16 12:25 Oxycodone/ Acetaminophen (Percocet 10-325 Mg) 1 tab Q4H PRN PO PAIN 6-10 08/02/16 20:00 08/07/16 21:38 Sodium Chloride (NS Flush) 2 ml BID IV FLUSH 08/02/16 21:00 08/08/16 08:17 Dextrose (D50w (Vial) Inj) 25 ml UNSCH PRN IV PUSH HYPOGLYCEMIA-SEE COMMENTS 08/02/16 22:15 08/07/16 06:41 Prazosin HCl (Minipress) 1 mg HS PO 08/03/16 21:00 08/07/16 21:38 Trazodone HCl (Desyrel) 50 mg HS PO 08/03/16 21:00 08/07/16 21:38 Venlafaxine HCl 50 mg 50 mg HS PO 08/03/16 21:00 08/07/16 21:37 Potassium Chloride/Sodium Chloride (NS + KCl 20 Meq Inj) 1,000 ml @ 42 mls/hr [id number] IV 08/06/16 08:45 08/06/16 09:48 Objective Remarks GENERAL: Elderly male, sitting up in bed watching TV SKIN: Warm and dry. HEAD: Normocephalic. EYES: No injection or drainage. NECK: Supple, trachea midline. CARDIOVASCULAR: Regular rate and rhythm RESPIRATORY: Breath sounds equal bilaterally. No accessory muscle use. GASTROINTESTINAL: Abdomen soft, non-tender, nondistended. EXTREMITIES: No cyanosis NEUROLOGICAL: aox3, normal speech. moving extremities. 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 --no associated cytopenias. no prior history of ITP. --LDH and haptoglobin WNL --s/p Decadron and IVIG --fs faxed to new patient referrals, patient also advised to call primary care physician at [place] and schedule follow up appointment (2) Elevated bilirubin Status: Acute Plan: --Mild hyperbilirubinemia with both direct and indirect bilirubin elevation. --direct Tegan test pending --may need abdominal ultrasound Assessment 71y/o male with severe thrombocytopenia. history of hypertension, diabetes and chronic pain HPI: was sent to ED after he was found to have a low platelet count on routine labs. Plan 1. clear for discharge 2. follow up for CBC outpatient on Friday 3. follow up in hematology clinic in one week. 4. [facility]. Attending Statement The exam, history, and the medical decision-making described in the above note were completed with the assistance of the mid-level provider. I reviewed and agree with the findings presented. I attest that I had a [id number] encounter with the patient on the same day, and personally performed and documented my assessment and findings in the medical record Chanel Quintana Aug 08, 2016 11:49 Lamberto Antunez MD Aug 08, 2016 23:29
[2016-08-08 12:00] VITALS: BP 116/65; PULSE 65; RESP 16; TEMP 97; O2SAT 98
[2016-08-08 12:35] LABS: BICARBONATE 28.5 MEQ/L (21.0-32.0); POTASSIUM 3.9 MEQ/L (3.5-5.1)
--- NOTE | 2016-08-08 14:01 | HHI.DS ---
Discharge Summary Admission Date Aug 02, 2016 at 18:30 Discharge Date: Aug 08, 2016 Admitting Diagnosis thrombocytopenia (1) Thrombocytopenia ICD Code: D69.6 Diagnosis: Principal (2) Dehydration ICD Code: E86.0 Diagnosis: Secondary (3) Chronic pain ICD Code: G89.29 Diagnosis: Secondary (4) DM (diabetes mellitus) ICD Code: E11.9 Diagnosis: Secondary Procedures BM biopsy Brief History - From Admission This is a 71-year-old male with a PMH of HTN, DM and Chronic Pain who [facility] to abnormal labs, per report, Platelets 17. Reports sporadic bruising and bleeding gums after brushing teeth. No h/o thrombocytopenia. Denies recent viral illness. On arrival, BP 133/75, HR 82, O2 sat 100% on RA, Afebrile. WBC normal. Hgb 13.1 Platelets 6 , previously 208 on 02/17/16. GFR 57. BUN 25. Total Bili 1.4. Dr. Antunez consulted by ER physician, recommended platelet transfusion and Dexamethasone 40mg IV. CBC/BMP: 08/08/16 0750 08/08/16 1146 Significant Findings Laboratory Tests Test 08/06/16 08/06/16 08/07/16 08/08/16 04:38 06:55 06:40 07:50 Red Blood Count 3.45 MIL/MM3 3.55 MIL/MM3 3.95 MIL/MM3 (4.50-5.90) (4.50-5.90) (4.50-5.90) Hemoglobin 10.4 GM/DL 10.5 GM/DL 11.9 GM/DL (13.0-17.0) (13.0-17.0) (13.0-17.0) Hematocrit 29.9 % 31.3 % 34.0 % (39.0-51.0) (39.0-51.0) (39.0-51.0) Platelet Count 28 TH/MM3 46 TH/MM3 67 TH/MM3 (150-450) (150-450) (150-450) Platelet Estimate LOW (NORMAL) LOW (NORMAL) LOW (NORMAL) Potassium Level 3.2 MEQ/L 3.4 MEQ/L (3.5-5.1) (3.5-5.1) Blood Urea Nitrogen 23 MG/DL (7-18) 19 MG/DL (7-18) Estimat Glomerular Filtration 73 ML/MIN (>89) 88 ML/MIN (>89) Rate Random Glucose 148 MG/DL (74-106) Calcium Level 7.8 MG/DL 7.8 MG/DL (8.5-10.1) (8.5-10.1) Monocytes (%) (Auto) 9.9 % (0.0-8.0) Ovalocytes 1+ (NORMAL) Test 08/08/16 11:46 Blood Urea Nitrogen 24 MG/DL (7-18) Estimat Glomerular Filtration 71 ML/MIN (>89) Rate Random Glucose 150 MG/DL (74-106) Calcium Level 7.9 MG/DL (8.5-10.1) Imaging Last Impressions Bone Biopsy CT 08/07/16 0600 Signed Impressions: Service Date/Time: Sunday, August 07, 2016 08:39 - CONCLUSION: 1. Uncomplicated CT guided bone marrow aspirate. 2. Uncomplicated CT guided bone marrow biopsy. Slade Henriquez MD FACR Abdomen Ultrasound 08/05/16 0000 Signed Impressions: Service Date/Time: Friday, August 05, 2016 08:35 - CONCLUSION: 1. Cholelithiasis without mural thickening or pericholecystic fluid. No intrahepatic biliary ductal dilatation. 2. Spleen is upper limits of normal in size. 3. Slight increased hepatic echotexture suggesting some degree of fatty infiltration. 4. Limited visualization of portions of the pancreas and aorta due to overlying bowel gas. Fredrick Cabello MD Lower Extremity Ultrasound 08/03/16 0000 Signed Impressions: Service Date/Time: Wednesday, August 03, 2016 12:06 - CONCLUSION: Normal examination. K. Chidi Robledo MD PE at Discharge skin- ecchymoses-- almost resolved awake and alert lungs clear regular rhythm abdomens soft, good bowel sounds lower extremities no edema, no calf tenderness Pt update on day of discharge no bleeding VS stable feels comfortable and confident to go home Hospital Course 71 years old male 1. Severe Thrombocytopenia: no response with steroids. received on IVIG- platelet count improving . Hgb stable. ff by Dr. Antunez . 2. SHMUEL-- improved: NO NSAID 3. Chronic Pain: home Percocet. 4. DM: Sliding scale w/ Accu-cheks. erratic Blood sugars with IV steroids. Restart long acting insulin. Hold Metformin in light of decreased GFR. AiC- 5.6 erratic readings- -due to pulse steroids- patient monitor blood sugars at home. d/w him- good hypoglycemic awareness discuss with him and family- regarding starting out with lower HS Lantus and monitor 5. DVT Prophylaxis: Pharmacologic contraindication in light of profound thrombocytopenia.. up and ambulating 6. Social work for d/c planning as needed. 7. Hypokalemia- give another 30 meq po x 1 08/07. recheck today DC- CM consult for home nursing- DC today Pt Condition on Discharge: Stable Discharge Disposition: Disch w/ Home Health Serv Discharge Time: <= 30 minutes Discharge Instructions DIET: Follow Instructions for: As Tolerated, No Restrictions, Heart Healthy Diet, Diabetic Diet Speech Therapy-Diet Recommends: Regular Activities you can perform: Weight Bearing as Arabella Activities to Avoid: Strenuous Activity Follow up Referrals: Oncology - 1 Week with Lamberto Antunez MD New Orders: CBC WITH DIFF - 08/09/16 Continued Medications: Insulin Glargine Inj (Lantus Inj) 1,000 Unit/10 Ml Vial 100 UNITS SQ HS Blood Sugar Management Ref 0 VIAL Insulin Glargine Inj (Lantus Inj) 1,000 Unit/10 Ml Vial 100 SQ HS Blood Sugar Management Ref 0 VIAL Lidocaine Patch 12 HR (Lidoderm Patch 12 HR) 5% Patch 1 PATCH TOPICAL DAILY Remove patch after 12 hours Pain Management #1 Ref 0 BOX Metformin (Metformin) 1,000 Mg Tab 1000 MG PO BIDPC With meals Blood Sugar Management #60 Ref 0 TAB Oxycodone-Acetaminophen (Percocet) 5-325 mg Tab 1 TAB PO Q6H PRN PAIN #30 Ref 0 TAB Prazosin (Prazosin) 1 Mg Cap 1 MG PO HS Blood Pressure Management #60 Ref 0 CAP Trazodone (Trazodone) 50 Mg Tab 50 MG PO HS Control Depression #30 Ref 0 TAB Venlafaxine (Effexor) 50 Mg Tab 50 MG PO HS #90 Ref 0 TAB Shawna Serrano MD Aug 08, 2016 14:00
[2016-08-08] MEDS: oxyCODONE/ACETAMINOPHEN 10 MG/325 MG TAB PO PRN (14:46)
[2016-08-08] MEDS ORDERED: OXYC1TAB36 PO (15:09)
[2016-08-08] MEDS ORDERED: LIDO5DIS35 TOPICAL (15:19)
== END 2016-08-08 16:19 | disposition home health service (06) | DRG 813 ==
LOC: NEPC 15:45 → NEDA 18:30 → HOCB 21:14
PROVIDERS: ADMIT Internal Medicine; ATTEND Internal Medicine
PROC: 6A550Z2 Pheresis of Platelets, Single (ICD-10-PCS; principal; 2016-08-02)
PROC: 30233S1 Transfusion of Nonautologous Globulin into Peripheral Vein, Percutaneous Approach (ICD-10-PCS; 2016-08-05)
PROC: 07DR3ZX Extraction of Iliac Bone Marrow, Percutaneous Approach, Diagnostic (ICD-10-PCS; 2016-08-07)
DX: D69.3 Immune thrombocytopenic purpura (principal); N17.9 Acute kidney failure, unspecified; R17 Unspecified jaundice; E86.0 Dehydration; E11.9 Type 2 diabetes mellitus without complications; G89.29 Other chronic pain; I10 Essential (primary) hypertension; Z88.5 Allergy status to narcotic agent; K06.8 Other specified disorders of gingiva and edentulous alveolar ridge; E78.5 Hyperlipidemia, unspecified; Z79.4 Long term (current) use of insulin; Z91.81 History of falling; E87.6 Hypokalemia
CPT/HCPCS: 36430; 38221; 76700; 77012; 80048; 80053; 80076; 82948; 83010; 83036; 83615; 84484; 85025; 85060; 85097; 85384; 85610; 85730; 86317; 86703; 86705; 86803; 86850; 86880; 86900; 86901; 86965; 88184; 88185; 88237; 88264; 88305; 88311; 88313; 93005; 93970; 99152; 99153; 99284; C1830; C9113; G0364; J1100; J1459; J1815; J2250; J3010; J3480; J7030; J7040; J7050; J7060; P9035